=== PATIENT | male | born 1970 | race Caucasian/White ===

== ENCOUNTER 2017-12-17 14:14 | Emergency (ER) | payer BC, SELFPAY ==
[2017-12-17 14:15] VITALS: BP 108/76; PULSE 69; RESP 16; TEMP 36.6; O2SAT 93; BMI 29.6
[2017-12-17 14:23] VITALS: BP 108/76; PULSE 65; RESP 14; O2SAT 94; O2SAT 96
--- NOTE | 2017-12-17 14:26 | CT_ITS ---
STUDY: CT BRAIN WITHOUT CONTRAST REASON FOR EXAM: Male, 47 years old. Facial pain following trauma. Laceration of the forehead and bridge of the nose. RADIATION DOSAGE (If Supplied By Facility): CTDIvol = ( 44.99 ) mGy, DLP = ( 863.60 ) mGycm TECHNIQUE: Transaxial CT imaging of the brain was performed without administration of intravenous contrast material. Individualized dose optimization techniques were used for this CT. COMPARISON: None. FINDINGS: Skull hematoma overlying the right frontal bone. Normal calvarium. Normal size ventricles and extra-axial spaces for the patient's age. Normal white matter tracts of the cerebral hemispheres. Normal basal ganglia and thalami. Normal brainstem. Normal cerebellum. There is no intracranial hemorrhage. There are no findings of an acute ischemic infarction. Comminuted nondisplaced nasal fracture. Nasal septal deviation toward the left side of the midline. Air-fluid level in the right frontal sinus. CT/Brain/Head without Contrast IMPRESSION: Skull hematoma overlying the right frontal bone. Comminuted nondisplaced nasal fracture. Electronically Signed: Eric Sherman MD at 15:22 EST Tel [phone], Service support ,
--- NOTE | 2017-12-17 14:26 | CT_ITS ---
STUDY: CT FACIAL BONES WITHOUT CONTRAST REASON FOR EXAM: Male, 47 years old. Facial trauma. Laceration to the bridge of the nose and forehead. RADIATION DOSAGE (If Supplied By Facility): CTDIvol = ( 29.38 ) mGy, DLP = ( 628.26 ) mGycm TECHNIQUE: The patient was scanned in a multi detector CT scanner. Sagittal and coronal images were reconstructed. Individualized dose optimization techniques were used for this CT. COMPARISON: None. FINDINGS: Scalp hematoma overlying the right frontal bone. Normal orbital howard and orbital contents. Condyle nondisplaced nasal fracture with overlying soft tissue swelling. Normal facial bones. Air fluid level in the right frontal sinus. Nasal septal deviation to the right-sided midline. Mucosal thickening of the ethmoid sinuses. CT/Sinus/Facial Bone IMPRESSION: Comminuted nondisplaced nasal fracture. Electronically Signed: Eric Sherman MD at 15:24 EST Tel [phone], Service support ,
--- NOTE | 2017-12-17 14:59 | CT_ITS ---
STUDY: CT CERVICAL SPINE WITHOUT CONTRAST REASON FOR EXAM: Male, 47 years old. Facial trauma. RADIATION DOSAGE (If Supplied By Facility): CTDIvol = ( 27.47 ) mGy, DLP = ( 581.39 ) mGycm TECHNIQUE: High resolution transaxial imaging was performed without contrast material. Sagittal and coronal images were reconstructed. Individualized dose optimization techniques were used for this CT. COMPARISON: None FINDINGS: Normal craniovertebral junction. Normal anterior atlantoaxial articulation. Normal odontoid process. Normal cervical lordosis. Normal vertebral bodies and posterior osseous elements. C2-3: Normal endplates. Normal disc height and morphology. Normal central canal and intervertebral neuroforamina. C3-4: Normal endplates. Normal disc height and morphology. Normal central canal and intervertebral neuroforamina. C4-5: Normal endplates. Normal disc height and morphology. Normal central canal and intervertebral neuroforamina. C5-6: The patient is status post anterior fusion with prosthetic disc at the C5-C6 level. Uncovertebral arthrosis. Mild bilateral neural foraminal stenosis. C6-7: Status post anterior fusion and prosthetic disc. Uncovertebral arthrosis. Mild to moderate degree of right neural foraminal stenosis. Normal visualized soft tissue structures. CT/Spine Cervical without Contras IMPRESSION: Status post anterior fusion at the C5-6 and C6-C7 levels. Electronically Signed: Eric Sherman MD at 15:35 EST Tel [phone], Service support ,
[2017-12-17] MEDS: Diphth,Pertuss(Acell),Tet Vac 0.5 ML Vial IM (15:10)
[2017-12-17 15:15] VITALS: BP 125/81; PULSE 82; RESP 16; O2SAT 95
[2017-12-17 16:09] VITALS: BP 124/82; PULSE 71; RESP 16; O2SAT 99
--- NOTE | 2017-12-17 16:21 | ED.DCSUM_ITS ---
- ER Visit Summary Date of Service: 12/17/17 Chief Complaint: Head trauma History of Present Illness: The patient is a 47 M presenting for evaluation secondary to head trauma. Patient was working outside when he was struck forcibly in the head by a heavy tree branch. Patient states that he thinks he potentially may have lost consciousness, states that everything looked like it was upside down when he got hit in the head. He is not on any sort of anticoagulants. Patient is now complaining of forehead and nasal pain. He denies any other injuries at this time. Physical Examination: Primary survey: Airway is patent, breath sounds equal bilateral, central peripheral pulses 2+ and symmetric, GCS 15 out of 15. Vitals within normal limits. Secondary survey: General: Well-nourished well-developed no acute distress Head: Normocephalic atraumatic Eyes: PERRLA, EOMI ENT: TMs clear no hemotympanum no drainage, nasal exam shows deformity of the nasal bone with some deviation to the left and laceration noted over the bridge of the nose measuring approximately a centimeter and a half. No nasal septal hematoma noted. Neck: Nontender full range of motion, no step-offs noted Heart: Regular rate and rhythm no murmurs Lungs: Respirations nondistressed, lung sounds clear to auscultation bilaterally , chest nontender, normal chest excursion bilaterally Abdomen: Soft nontender nondistended normal bowel sounds no palpable abdominal masses Back: Nontender no step-offs noted Extremities: Nontender: Active full range of motion ?4 Skin: Normal color no trauma Neuro: Alert and oriented ?4, GCS 15 out of 15, no lateralizing neurological deficits. Test Results: CT brain negative, CT cervical spine negative, CT max face shows evidence of a comminuted nondisplaced nasal fracture Emergency Department Course and Treatment: Patient presented after being struck in the head. Primary and secondary surveys are noted as above traumatic issues seem to be isolated to the patient's face and head. Imaging showed only evidence of comminuted nasal fracture. Patient's tetanus status was updated. I discussed patient's case with ENT Dr. Lucas, given the fact that the patient has an open nasal fracture. He recommended prophylactic antibiotics with penicillin, and early follow-up. Patient's nasal wound was then addressed. It was cleansed initially with tap water, then was anesthetized using 5 cc of 1% lidocaine. It was then copiously irrigated with sterile saline. The wound was then approximated using 3 simple interrupted 5-0 nylon sutures patient tolerated this well. Patient will be discharged with a course of penicillin and Percocet and follow-up with ENT. Disposition: Discharge Impression: 1. 1.5 cm nasal laceration 2. Open nasal fracture 3. Laceration repair by ED physician This note was generated with Extreme [employer] dictation software. It may contain incorrect words, spelling, and punctuation that were not noted in review of the chart prior to signing ED Disposition - Plan for ED Patient: Disposition: Home or Assisted Living Chief Complaint: Trauma Diagnosis: Open nasal fracture Instructions: ED Fx Nose W Lac Skin Glue Prescriptions: Oxycodone HCl/Acetaminophen [Percocet 5/325] 1 tab PO Q6H PRN PRN #20 tab PRN Reason: Pain Penicillin V Potassium 500 mg PO 4X/DAY #40 tab Referrals: Jose Guadalupe Lucas MD [STAFF PHYSICIAN] - As soon as possible
[2017-12-17 16:51] VITALS: BP 129/82; PULSE 81; RESP 16; O2SAT 97
[2017-12-17] MEDS: Penicillin Vk 250 MG Tablet 500 MG PO (16:55)
[2017-12-17] MEDS: oxyCODONE 5 MG Tablet 10 MG PO (16:56)
== END 2017-12-17 17:26 | disposition home or self-care (01) ==
PROVIDERS: Emergency Provider Emergency Medicine; Family Provider Family Medicine; PCP Family Medicine
DX: S01.21XA Laceration without foreign body of nose, initial encounter (principal); S02.2XXB Fracture of nasal bones, initial encounter for open fracture; W20.8XXA Other cause of strike by thrown, projected or falling object, initial encounter; Y93.9 Activity, unspecified; Y92.89 Other specified places as the place of occurrence of the external cause; Y99.9 Unspecified external cause status
CPT/HCPCS: 12011; 70450; 70486; 72125; 90471; 90715; 99283; J7030

== ENCOUNTER 2017-12-24 10:46 | Day surgery (SDC) | payer BC, SELFPAY ==
[2017-12-24 11:08] VITALS: BP 118/85; PULSE 71; RESP 16; TEMP 36.4; O2SAT 98; BMI 30.8
--- NOTE | 2017-12-24 12:36 | PCM.DC ---
You will use the following diet at home:: Regular Discharge Activity: Return to Normal Activity Call your doctor if your incision/area has: Sudden Increased Bleeding Call your doctor if you observe: Fever of 101 or Higher, Uncontrolled pain Allergies/Adverse Reactions: Allergies No Known Allergies Allergy (Verified 12/23/17 15:21) Medications to take at Discharge RX: Penicillin V Potassium 500 mg PO 4X/DAY #40 tab 12/17/17 Acetaminophen [Tylenol Extra Strength] 500 - 1,000 mg PO Q6H PRN PRN 12/23/17 Primary Care Physician: Aldair Wells MD [Primary Care Provider] - Please Follow Up With: Jose Guadalupe Luacs MD When: 2 weeks
--- NOTE | 2017-12-24 12:37 | PCM.OPRPT ---
Problem List (1) Nasal bone fracture Status: Acute Report of Operation Date of Procedure: 12/24/17 Pre-Operative Diagnosis: Reduction of nasal fracture Post-Operative Diagnosis: same Surgery/Procedure Performed:: Reduction of nasal fracture Description of Surgical Findings:: Layton is a 39-year-old male who suffered nasal trauma with open fracture who presents to the emergency department and I saw subsequently in follow-up. At time of initial evaluation there is significant soft tissue swelling and edema which obscure the amount of nasal dorsal deviation however as this subsided a significant curvature of the nasal dorsum and depression of the right nasal bone were noted and reduction for correction of the nasal congestion deformity was offered at his request. The risks, alternatives, potential comp occasions, and benefits were discussed at length with witnessed informed consent obtained in the office. Procedure went as follows: Patient was identified in the preoperative holding brought to the operating room was placed under general anesthesia and intubated. When appropriate anesthesia obtained oxymetazoline and 4% topical lidocaine soaked pledgets were placed in the nasal cavity to decongest the nasal mucosa. After lying for decongestion these were then removed and the nasal cavity examined there is noted to be a markedly inferior and old left rib nasal septal deviation and narrowing of the superior aspect of the nasal passageways due to the depressed fracture of the right nasal bone. Using a [place] elevator the depressed right nasal bone was then elevated and lifted reducing the fracture this also alleviated the leftward deviation of the dorsum as the left nasal bone dropped into its [place] position. This allowed for both muslim of the external contour of the nose and muslim of patency of the nasal cavities bilaterally. No additional reinforcement was required as this was quite stable and the nasal packing was then replaced for hemostasis and removed prior to extubation by anesthesia having tolerated procedure well. Type of Anesthesia:: General Anesthesiologist: Edy Marie Specimen's removed: none Estimated Blood Loss (mL): 0 mL Fluids Replaced: 0 mL Grafts/Implants Used: none - Complications none - Admit VTE Documentation VTE Present on Admission: No VTE Mechan Device Prophylaxis: SCD's VTE Pharm Prophylaxis ordered?: No
[2017-12-24 12:42] VITALS: BP 118/85; BP 120/89; PULSE 77; RESP 12; TEMP 36.3; O2SAT 94
--- NOTE | 2017-12-24 12:43 | OP.PCM_ITS ---
Problem List (1) Nasal bone fracture Status: Acute Report of Operation Date of Procedure: 12/24/17 Pre-Operative Diagnosis: Reduction of nasal fracture Post-Operative Diagnosis: same Surgery/Procedure Performed:: Reduction of nasal fracture Description of Surgical Findings:: Layton is a 39-year-old male who suffered nasal trauma with open fracture who presents to the emergency department and I saw subsequently in follow-up. At time of initial evaluation there is significant soft tissue swelling and edema which obscure the amount of nasal dorsal deviation however as this subsided a significant curvature of the nasal dorsum and depression of the right nasal bone were noted and reduction for correction of the nasal congestion deformity was offered at his request. The risks, alternatives, potential comp occasions, and benefits were discussed at length with witnessed informed consent obtained in the office. Procedure went as follows: Patient was identified in the preoperative holding brought to the operating room was placed under general anesthesia and intubated. When appropriate anesthesia obtained oxymetazoline and 4% topical lidocaine soaked pledgets were placed in the nasal cavity to decongest the nasal mucosa. After lying for decongestion these were then removed and the nasal cavity examined there is noted to be a markedly inferior and old left rib nasal septal deviation and narrowing of the superior aspect of the nasal passageways due to the depressed fracture of the right nasal bone. Using a [place] elevator the depressed right nasal bone was then elevated and lifted reducing the fracture this also alleviated the leftward deviation of the dorsum as the left nasal bone dropped into its [place] position. This allowed for both yazidi of the external contour of the nose and yazidi of patency of the nasal cavities bilaterally. No additional reinforcement was required as this was quite stable and the nasal packing was then replaced for hemostasis and removed prior to extubation by anesthesia having tolerated procedure well. Type of Anesthesia:: General Anesthesiologist: Edy Marie Specimen's removed: none Estimated Blood Loss (mL): 0 mL Fluids Replaced: 0 mL Grafts/Implants Used: none - Complications none - Admit VTE Documentation VTE Present on Admission: No VTE Mechan Device Prophylaxis: SCD's VTE Pharm Prophylaxis ordered?: No
[2017-12-24 12:45] VITALS: BP 116/91; BP 118/85; PULSE 74; RESP 16; O2SAT 95
[2017-12-24 13:00] VITALS: BP 118/85; BP 120/79; PULSE 69; RESP 16; O2SAT 96
[2017-12-24 13:10] VITALS: BP 118/85; BP 125/90; PULSE 64; RESP 18; TEMP 36.2; O2SAT 97
[2017-12-24 13:40] VITALS: BP 118/85; BP 120/90; PULSE 78; RESP 18; TEMP 36.8; O2SAT 98
== END 2017-12-24 13:40 | disposition home or self-care (01) ==
LOC: SDC 10:47 → AC 10:47
PROVIDERS: Family Provider Family Medicine; PCP Family Medicine; Visit Provider Otolaryngology
PROC: 0NSBXZZ Reposition Nasal Bone, External Approach (ICD-10-PCS; CPT 21315; principal; 2017-12-24 12:15)
DX: S02.2XXD Fracture of nasal bones, subsequent encounter for fracture with routine healing (principal); R68.84 Jaw pain; Z85.828 Personal history of other malignant neoplasm of skin
CPT/HCPCS: 21315; J7120; J2405

== ENCOUNTER 2019-09-25 16:30 | Outpatient (RCR) | payer BC, SELFPAY ==
--- NOTE | 2019-09-12 14:11 | HP.PTEVAL ---
Patient's Visit Information CHRISTI ABBASI is a 49 year old M referred to Physical Therapy by GABRIEL ALVAREZ with a diagnosis of CERVICOTHORACIC DDD.. Date of Evaluation: 09/12/19 Physical Therapist: Julia Sánchez PT, Cert MDT - Visit Plan Frequency: 2-3x /Week Duration: 4-6 Weeks Plan: CP OR MH NEEDED. CERVICAL ISOMETRICS TOLERATED. POSTURE CORRECTION/STRENGTHENING, INSTRUCTION IN APPROPRIATE BODY MECHANICS AND ACTIVITY MODIFICATIONS. VESNA UE ROM, STRETCHING AND STRENGTHENING. HEP INSTRUCTION. - Subjective Findings: Work/Leisure: WORKING [employer] IN AN [employer]. NOT OFF WORK CURRENTLY. Present symptoms: REALLY BAD HEADACHE AT THE BASE OF NECK - CENTRAL. Present since: ABOUT 6 WEEKS AGO. STARTED HEARING LOAD CRACKS IN NECK (VERY LOUD BUT WITHOUT PAIN) ABOUT 2 MONTHS AGO. Pain Scale: Worst - 7/10 Least - 3/10. Currently: 6/10. GETTING WORSE. Commenced as a result of: NO APPARENT REASON. Symptoms at onset: LOAD CRACKING IN NECK. Worse: UNKNOWN. Better: ICE, EXCEDERINE. Disturbed sleep: YES. Previous history/Previous treatment: SURGERY 08/13/15 - FUSION C567. HAD PHYSICAL THERAPY AFTER SURGERY, RECOVERED, BACK TO WORK AND FINE UNTIL RECENTLY. Dizziness: NO. Tinnitis: NO. Nausea: NO. Shortness of Breath: NO. Difficulty Swollowing: NO. Gait: NORMAL. Accidents: TREE FELL AND HIT HIM IN FACE AND BROKE HIS NOSE - SURGERY DEC 2017. Unexplained weight loss: NO. Imaging: X-RAY AND CAT SCAN RECENTLY OF NECK - LOOSENING OF THE HARDWARE IN THE NECK. STATES THEY DIDN'T SEE ANYTHING TO BE ALARMED ABOUT SO WANT HIM TO TRY PHYSICAL THERPAY FOR A MONTH BEFORE TRYING ANYTHING ELSE. PMH/Recent major surgery: UNREMARKABLE. - Objective Sitting Posture/Standing Posture: FAIR. NO TORTICOLLIS. Active Correction of posture: NE. Other Observations: INDEP GAIT AND TRANSFERS. Motor deficit: VESNA UE'S 5/5 WITH MMT'ING. LEFT HANDED WITH LEFT DRY CELL TESTER 140 LBS AND RIGHT 130 LBS. Sensory deficit: NO. ROM deficit: VESNA UE ROM WFL AND TESTING HAS NO EFFECT ON NECK/HEAD PAIN. Reflexes: VESNA UE'S 1/2. Dural Signs: NEGATIVE VESNA UE'S. Cervical Mvmt Loss: Flex: MIN. Pro: NIL. Ext: MERY. Ret: MERY. RSB: MOD. LSB: MOD. R Rot: MOD. L Rot: MOD. PATIENT DENIES INCREASED PAIN WITH VESNA SB AND VESNA ROTATION ROM TESTING HOWEVER RETRACTION AND EXTENSION TESTING QUICKLY INCREASE PAIN. Postural strength: NE. Palpation: NO ACUTE TENDERNESS WITH LIGHT PALPATION OF UPPER THORACIC AND CERVICAL REGIONS. OTHER: PATIENT ALSO UNABLE TO TOLERATE SUB MAX SUPIINE ISO RETRACTION WITHOUT PAIN BUILDING BUT NO WORSE A RESULT. - Goals Goal 1:: DECREASE C/O HEAD/NECK PAIN Goal Time Frame: 2-4 Weeks Goal 2:: IMPROVE LIFTING, SLEEP, WORK, DRIVING AND RECREATIONAL FUNCTION Goal Time Frame: 2-4 Weeks Goal 3:: INSTRUCT IN PROPHYLAXIS Goal Time Frame: 2-4 Weeks - Rehabilitation Potential Rehabilitation Potential: Fair - Anticipated Interventions Patient/Client Instruction: Educate patient on: Condition, Plan of Care, Risk Factors, Benefits of Fitness Program For the Purpose of:: To improve self management Therapeutic Exercise to Include: Strength training, Body mechanics, Postural training, Flexibilty training, Active ROM, Scapular Strength/Stabilization Comment: INCLUDE TRIAL OF CERVICAL ISOMETRICS For the Purpose of:: To decrease pain, To increase ROM, To improve muscle performance and motor function, To increase tolerance to activity/condition/position, To improve ability of physical actions for home/community/work/leisure Cryotherapy (ice pack, ice massage): Yes Thermo therapy (hot pack): Yes For the Purpose of:: To decrease pain, To decrease swelling/inflammation, To increase ROM, To improve nutrient delivery to tissue Thank you for the opportunity to evaluate your patient. For Medicare and Medicare HMO plans, please review the plan of care and approve it. It will need to be FAXED BACK to us at [phone] for Medicare purposes. For Medicare only, by signing this I certify the plan of care. Please let me know if there are questions or concerns regarding this plan of care. Physician Signature: Date:
--- NOTE | 2019-09-25 17:16 | HP.PTDCSUM ---
HP - PT D/C Summary It has been my pleasure to treat CHRISTI ABBASI under orders from GABRIEL ALVAREZ, for the diagnosis of CERVICOTHORACIC DDD. for a total of 6 visit(s). Discharge Date: 09/25/19 Please see the following information for a summary of their discharge status. - Subjective Subjective: PATIENT REPORTS HIS PAIN WAS PRETTY GOOD OVER THE WEEKEND. HEADACHE/NECK ACHE WENT AWAY AFTER MORE EXCEDERIN WEDNESDAY. NONE OF THE EX'S BOTHER IT UNLESS GOES TO FAR WITH RETRACTION. STATES IT IS REALLY A NECK ACHE NOT A HEADACHE. PATIENT REPORTS HE DOES SEEM TO BE SOME BETTER OVER-ALL. PATIENT REPORTS HIS LEFT SHOULDER IS DEFINATELY GETTING LOOSER. PATIENT REPORTS HE HAS TO CANCEL HIS NEXT TWO PT SAM'TS AND FOLLOWS UP WITH HIS NECK SURGEON DR. GABRIEL ALVAREZ WEDNESDAY. - Pain NECK Pain Intensity (Out of 10): 2 HEAD Pain Intensity (Out of 10): 0 - Overall Improvement % Improvement: 20 - Objective Objective/Function: UPON EXAM TODAY THIS PATIENT DEMO'S A SMALL INCREASE IN NECK FLEX, EXT, RIGHT ROTATION AND RETRACTION NECK ROM. THERE WAS AN AUDIBLE INCONSISTANT SNAPPING SOUND WITH RIGHT CERVICAL ROM TESTING TODAY. OVER-ALL HE IS REPORTING BEING ABOUT THE SAME. HE IS INDEP WITH A HEP THAT I HAVE RECOMMENDED HE CONTINUE TOLERATED AT THIS POINT. PATIENT REPORTS TRYING TRACTION SCARES HIM TO AND HE CAN NOT RELAX TO HAVE IT DONE. HE REPORTS HE WANTS TO TRY TO CONTINUE WITH THE EX'S AT THIS POINT. - Goals Goal 1:: DECREASE C/O HEAD/NECK PAIN Goal Progress: Progressing Goal 2:: IMPROVE LIFTING, SLEEP, WORK, DRIVING AND RECREATIONAL FUNCTION Goal Progress: Progressing Goal 3:: INSTRUCT IN PROPHYLAXIS Goal Progress: Progressing - Plan Plan: D/C. PHYSICIAN RE-ASSESSMENT RECOMMENDED. - D/C Information If there are questions or concerns regarding this patient's physical therapy, please feel free to call me at [phone]. Thank you for the referral of this patient. Sincerely, Julia Sánchez, PT, Cert MDT
== END 2019-09-25 19:00 | disposition home or self-care (01) ==
LOC: PT 16:30
PROVIDERS: Family Provider Family Medicine; PCP Family Medicine
DX: M50.33 Other cervical disc degeneration, cervicothoracic region (principal)
CPT/HCPCS: 97110; 97162; 97530

== ENCOUNTER → 2019-10-18 15:30 | Outpatient (CLI) | payer BC, SELFPAY ==
--- NOTE | 2019-10-18 15:48 | MRI_ITS ---
STUDY: MRI CERVICAL SPINE WITHOUT CONTRAST REASON FOR EXAM: Male, 49 years old. stenosis, pain upper back , h/o prior sx 2015, no relief with PT TECHNIQUE: Standardized fat and water weighted pulse sequences were obtained in the sagittal and axial planes. COMPARISON: MRI 08/01/2015 FINDINGS: Normal foramen magnum and brainstem-cervical cord junction. Normal craniovertebral junction. Normal anterior atlantoaxial articulation. Normal odontoid process. Normal cervical lordosis. Anterior surgical fusions of C5-C7 with normal alignment. C2-3: Disc osteophyte complex without compressive sequelae. C3-4: Disc osteophyte complex and bilateral facet hypertrophy with mild left foraminal stenosis. C4-5: Normal endplates. Normal disc height, signal and morphology. Normal central canal and intervertebral neural foramina. C5-6: Disc osteophyte complex with moderate central canal stenosis. C6-7: Disc osteophyte complex with mild central canal and moderate bilateral foraminal stenoses. C7-T1: Normal endplates. Normal disc height, signal and morphology. Normal central canal and intervertebral neural foramina. Normal cervical cord. Normal visualized soft tissue structures. Stable 12 mm T2 hyperintense nodule in the right thyroid lobe. Consider ultrasound correlation. MRI/Spine Cervical (Routine) IMPRESSION: Multilevel degenerative disease and postoperative change as described. Moderate bilateral foraminal stenoses at the C6-7 level. Stable 12 mm T2 hyperintense nodule in the right thyroid lobe. Consider ultrasound correlation. Electronically Signed: Ismael Trevino MD at 2:41 EST Tel , Service support ,
== END ==
PROVIDERS: Family Provider Family Medicine; PCP Family Medicine
DX: M48.02 Spinal stenosis, cervical region (principal)
CPT/HCPCS: 72141

== ENCOUNTER → 2019-12-18 15:54 | Outpatient (CLI) | payer BC, SELFPAY ==
[2019-12-18 12:51] VITALS: BMI 30.8
--- NOTE | 2019-12-18 15:00 | FLU_PTH ---
PATIENT: CHRISTI ABBASI LOC: [facility] U#:[id number] AGE/SX: 55/M ROOM: RE12/18/[address]: Dr. Misael Thao MD : 1970 BED: DIS: SPEC #: [id number] RECD: 12/18/19 15:47 STATUS: ALEK IRVIN #: [id number] CATRACHITO: 12/18/19 15:[address]: Misael Thao DEPT: CYTOLOGY RECD BY: Luis Go ENTERED: 12/19/19 09:45 SP TYPE: Fluid OTHR DR: Dr. Aldair Wells MD Tissues: A - Thyroid gland, NOS B - Thyroid gland, NOS Procedures: Special Stain Group II Surgery Specimen Level IV Cytospin Fluid Cytology Other HEADER OPERATION: Right thyroid FNA PRE-OP DIAGNOSIS: Right thyroid nodule TISSUE SUBMITTED: A - Right thyroid nodule fluid for cytology, B - Right thyroid slides x 8 DIAGNOSIS CYTOLOGY A. Right thyroid nodule fluid for cytology, FNA (cytospin and cell block): Consistent with cyst contents. See comment. B. Right thyroid nodule, FNA (smears): Atypical follicular cells of undetermined significance. Adequate for evaluation. See comment. KRYSTAL:marie 12/20/19 COMMENT A. The specimen predominantly consists of macrophages. B. Numerous macrophages are also noted, consistent with focal cystic changes. Correlation with clinical, radiologic findings and appropriate follow up are necessary. CYTOLOGY STUDY Slides are reviewed. CYTOLOGY GROSS A - Received is 0.25 ml of red cloudy fluid labeled with the patient's name and and designated per the requisition as right thyroid. Submitted for cytology preparation including cell block. B - Received are eight smears labeled with the patient's name and designated per the requisition as right thyroid. Submitted for staining. / marie 12/19/19 TC:5 CPT: 84105, [id number], 03197 ADDENDUM ADDENDUM ADDENDUM ADDENDUM ADDENDUM ADDENDUM ADDENDUM ADDENDUM ADDENDUM ADDENDUM ADDENDUM ADDENDUM ADDENDUM ADDENDUM 01/01/2020 10:49 ADDENDUM 01/01/2020 10:49 ADDENDUM 01/01/2020 10:49 ADDENDUM 01/01/2020 10:49 ADDENDUM 01/01/2020 10:49 This addendum is added to incorporate an outside pathology consultation report. The case was examined at [facility] (#[id number]) and the following diagnosis was rendered. A. Thyroid, right nodule fluid, fine needle aspiration: Atypia of undetermined significance. Limited cellularity. B. Thyroid, right nodule, fine needle aspiration: Positive for malignant cells. Papillary thyroid carcinoma. Please see complete above mentioned consultation report in EMR
== END ==
LOC: LABSPEC 15:56
PROVIDERS: PCP Family Medicine; Referring Provider Surgery; Visit Provider Surgery
DX: E04.1 Nontoxic single thyroid nodule (principal)
CPT/HCPCS: 88108; 88161; 88305; 88313

== ENCOUNTER → 2019-12-25 15:06 | Outpatient (CLI) | payer BC, SELFPAY ==
[2019-12-25 14:39] VITALS: BMI 30.8
[2019-12-25 15:57] LABS: Free T3 2.9 pg/mL (2.18-3.98); T4 Free Direct 0.89 ng/dL (0.76-1.46); Thyroid Stim Hormone (TSH) 1.69 uIU/mL (0.358-3.74)
[2019-12-27 20:49] LABS: Anti-Thyroglobulin AB < 1.0 IU/mL (0.0-0.9); Thyroglobulin, Serum Qt. 6.6 ng/mL (1.4-29.2); Thyroid Peroxidase AB 8 IU/mL (0-34)
== END ==
PROVIDERS: PCP Family Medicine; Referring Provider Surgery; Visit Provider Surgery
DX: E04.1 Nontoxic single thyroid nodule (principal)
CPT/HCPCS: 36415; 84432; 84439; 84443; 84481; 86376; 86800

== ENCOUNTER 2020-11-19 05:22 | Day surgery (SDC) | payer BC, SELFPAY ==
[2019-12-25 14:39] VITALS: BMI 30.8
[2020-11-19] VITALS (7 sets, daily range): BP systolic 109–125; BP diastolic 60–87; PULSE 73–78; RESP 16; TEMP 35.8–36.9; O2SAT 93–100; BMI 30.7
[2020-11-19] MEDS: Lactated Ringers 1,000 ML 100 ML IV (05:59)
--- NOTE | 2020-11-19 06:14 | PCM.HP.STD ---
Problem List (1) Screening for intestinal cancer Status: Acute History of Present Illness Date of Admission: 11/19/20 The patient is a 50 year old M who presents for screening colonoscopy today. He has never had a previous colonoscopy. He denies any gastrointestinal symptoms. No abdominal pain. No bright red blood per rectum or melena. He has no family history of colon cancer. He is not had any previous abdominal surgery Past Medical History Medical History: Medical History (Last Reviewed 12/25/19 @ 14:37 by Preeti Segundo) Right thyroid nodule (Acute) E04.1 Nasal bone fracture (Acute) S02.2XXA Arthritis M19.90 History of back problems Thyroid nodule E04.1 Allergies No Known Allergies Allergy (Verified 11/19/20 05:42) Home Medications: Ambulatory Orders Medication Instructions Recorded Acetaminophen [Tylenol] 500 - 1,000 mg PO Q6H PRN PRN 12/23/17 Surgical History: Surgical History (Last Reviewed 12/25/19 @ 14:37 by Preeti Segundo) History of fusion of cervical spine Z98.1 historyclosed reduction nasal fracture Smoking Status: Never smoker Tobacco Use: Non-smoker Review of Systems Constitutional: Denies: Fever, Night Sweats Cardiovascular: Denies: Chest Pain Respiratory: Denies: Cough, Shortness of Breath Gastrointestinal: Denies: Abdominal Pain, Hematochezia, Melena Endocrine: Denies: Change in Body Habitus VTE Information - Inpt Only VTE Present on Admission: No - Physical Exam Vitals/I&O's: Vital Signs Temp Pulse Resp BP Pulse Ox 97.7 F L 78 16 118/86 H 98 11/19/20 05:43 11/19/20 05:43 11/19/20 05:43 11/19/20 05:43 11/19/20 05:43 Oxygen Delivery Method Room Air Weight: 280 lb Body Mass Index (BMI) 30.7 General: Alert, Oriented x3, Cooperative, No apparent distress HEENT: Atraumatic Oral: Moist Mucosa Neck: Supple Lungs: Clear to auscultation Cardiovascular: Regular rate, Regular Rhythm Abdomen: Bowel Sounds Present, Soft, Non Tender Extremities: No Calf Tenderness Neurological: - - Normal cognition Psych/Mental Status: Normal Affect Current Medications Lactated Ringer's () 1,000 mls @ 100 mls/hr IV .Q10H SANDEE Last Admin: 11/19/20 05:59 Dose: 100 mls/hr Documented by: Assessment/Plan All Active Problems (Last Reviewed 12/25/19 @ 14:37 by Preeti Segundo) Screening for intestinal cancer (Acute) Right thyroid nodule (Acute) Nasal bone fracture (Acute) I recommended the patient a screening colonoscopy with possible biopsy or polypectomy is indicated. He is aware of the technique, benefit, risk, alternatives. He has had an opportunity to ask and have questions answered. He presents via open access. We will proceed as noted. Misael Thao M.D., F.A.C.S.
--- NOTE | 2020-11-19 06:49 | OP.CCLET_ITS ---
11/19/2020 Aldair Wells Re : Colonoscopy procedure for Layton Hewitt Dear Russell This procedure was performed on Thursday, November 19, 2020. My impressions and recommendations are as follows: Impressions : - Hemorrhoids found on perianal exam. - Diverticulosis in the sigmoid colon. - The examination was otherwise normal. - No specimens collected. Recommendations : - Discharge patient to home. - Resume previous diet. - Continue present medications. - Repeat colonoscopy in 10 years for screening purposes. My findings are described in the full procedure note, which is enclosed. If I can be of further assistance, please feel free to contact me at Doctor phone number(s): Work: . Sincerely, Misael Thao MD 11/19/2020 6:48:56 AM This report has been signed electronically.
--- NOTE | 2020-11-19 06:49 | OP.COLON_ITS ---
Patient Name: Layton Hewitt Procedure Date: 11/19/2020 6:07 AM Date of : 1970 Age: 50 Procedure: Colonoscopy Indications: Screening for colorectal malignant neoplasm Providers: Misael Thao MD Referring MD: Aldair Wells Medicines: Midazolam 5 mg IV, Meperidine 100 mg IV Patient Profile: Last Colonoscopy: none. The patient's first colonoscopy is today. Complications: No immediate complications. Procedure: Pre-Anesthesia Assessment: - Prior to the procedure, a History and Physical was performed, and patient medications and allergies were reviewed. The patient's tolerance of previous anesthesia was also reviewed. The risks and benefits of the procedure and the sedation options and risks were discussed with the patient. All questions were answered, and informed consent was obtained. Prior Anticoagulants: The patient has taken no previous anticoagulant or antiplatelet agents. ASA Grade Assessment: II - A patient with mild systemic disease. After reviewing the risks and benefits, the patient was deemed in satisfactory condition to undergo the procedure. After I obtained informed consent, the scope was passed under direct vision. Throughout the procedure, the patient's blood pressure, pulse, and oxygen saturations were monitored continuously. The adult colonoscope was introduced through the anus and advanced to the cecum, identified by appendiceal orifice and ileocecal valve. The colonoscopy was performed without difficulty. The patient tolerated the procedure well. The quality of the bowel preparation was good. The ileocecal valve and the appendiceal orifice were photographed. Moderate Sedation: Moderate (conscious) sedation was personally administered by the endoscopist. The following parameters were monitored: oxygen saturation, heart rate, blood pressure, and response to care. Total physician intraservice time was 15 minutes. Scope In: 6:29:40 AM Scope Withdrawal Time 0 hours 8 minutes 46 seconds Scope Out: 6:44:41 AM Total Procedure Duration Time 0 hours 15 minutes 1 second Findings: Hemorrhoids were found on perianal exam. A few diverticula were found in the sigmoid colon. The exam was otherwise without abnormality. Impression: - Hemorrhoids found on perianal exam. - Diverticulosis in the sigmoid colon. - The examination was otherwise normal. - No specimens collected. Recommendation: - Discharge patient to home. - Resume previous diet. - Continue present medications. - Repeat colonoscopy in 10 years for screening purposes. Procedure Code(s): --- Professional --- 74667, Colonoscopy, flexible; diagnostic, including collection of specimen(s) by brushing or washing, when performed (separate procedure) 75473, 59, Moderate sedation services provided by the same physician or other qualified health rn home care performing the diagnostic or therapeutic service that the sedation supports, requiring the presence of an independent trained observer to assist in the monitoring of the patient's level of consciousness and physiological status; initial 15 minutes of intraservice time, patient age 5 years or older Diagnosis Code(s): --- Professional --- Z12.11, Encounter for screening for malignant neoplasm of colon K64.9, Unspecified hemorrhoids K57.30, Diverticulosis of large intestine without perforation or abscess without bleeding CPT copyright 2017 [employer]. All rights reserved. The codes documented in this report are preliminary and upon goodwill representative review may be revised to meet current compliance requirements. Misael Thao MD 11/19/2020 6:48:56 AM This report has been signed electronically. Number of Addenda: 0 Note Initiated On: 11/19/2020 6:07 AM
== END 2020-11-19 07:36 | disposition home or self-care (01) ==
LOC: EN 05:23 → AC 05:25
PROVIDERS: PCP Family Medicine; Referring Provider Family Medicine; Visit Provider Surgery
PROC: 0DJD8ZZ Inspection of Lower Intestinal Tract, Via Natural or Artificial Opening Endoscopic (ICD-10-PCS; CPT 45378; principal; 2020-11-19 06:25)
DX: Z12.11 Encounter for screening for malignant neoplasm of colon (principal); K64.9 Unspecified hemorrhoids; K57.30 Diverticulosis of large intestine without perforation or abscess without bleeding; Z98.1 Arthrodesis status
CPT/HCPCS: 45378; 99152; 99153; J7120

== ENCOUNTER 2021-04-28 07:38 | Observation (INO) | payer BC, SELFPAY ==
[2020-11-19 05:43] VITALS: BMI 30.7
[2021-04-28] VITALS (10 sets, daily range): BP systolic 92–140; BP diastolic 61–89; PULSE 59–81; RESP 12–18; TEMP 36.3–36.9; O2SAT 95–98; BMI 30.6
--- NOTE | 2021-04-28 07:48 | NURSING ---
NO OLD EKGS
--- NOTE | 2021-04-28 07:55 | EKG12_ITS ---
Test Reason : CHEST PAIN Blood Pressure : / mmHG Vent. Rate : 070 BPM Atrial Rate : 070 BPM P-R Int : 186 ms QRS Dur : 108 ms QT Int : 400 ms P-R-T Axes : 045 018 031 degrees QTc Int : 432 ms Normal sinus rhythm Normal ECG Confirmed by TATI FRANK, LEESA ([id number]), movie editor SHIELA COTA ([id number]) on 05/02/2021 8:11:26 AM Referred By: SYLVIA Confirmed By:LEESA DUFFY MD
--- NOTE | 2021-04-28 08:08 | EX.ED.DYSGE1 ---
HPI History of Present Illness Chief Complaint: Chest Pain Informant: patient Narrative Narrative: Patient is a 51-year-old male with a past medical history of thyroid cancer who presents to the emergency department for chest pain. He states he had one episode on Wednesday that lasted approximately 5 minutes. He got up to a 7 out of 10. It was a pressure sensation. He did not think much of it as he has not had symptoms until this morning. He had right-sided chest pressure that was a 5 out of 10. He became sweaty with it. No significant shortness of breath. He did have some palpitations during the episode. No leg swelling or calf pain. He denies any radiation of the pain into his back but did have some radiation to his right shoulder. No abdominal pain. His father had 7 heart attacks with the first being in his 40s. Patient has not taken anything for this. He denies a smoking history. [facility] Medical History (Updated 04/28/21 @ 14:[address] William Garcia, ) Arthritis History of back problems Nasal bone fracture Right thyroid nodule Thyroid nodule Allergy/AdvReac Type Severity Reaction Status Date / Time No Known Allergies Allergy Verified 04/28/21 07:41 Family History Father Arthritis Cancer Heart disease Hypertension Mother Arthritis Surgical History History of fusion of cervical spine historyclosed reduction nasal fracture Social History (Updated 04/28/21 @ 11:49 by Mari Douglas) Smoking Status: Never smoker alcohol intake: current details: occasional substance use type: does not use ROS ROS ED Constitutional Constitutional ED: Denies chills or fever(s) Eyes Eyes: Denies change in vision ENT ENT ED: Denies epistaxis or rhinorrhea Cardiovascular Cardiovascular: Reports chest pain and palpitations Respiratory/Chest Respiratory/Chest: Denies cough, dyspnea or dyspnea on exertion Gastrointestinal Gastrointestinal: Denies abdominal pain, diarrhea, nausea or vomiting Musculoskeletal Musculoskeletal: Denies back pain or neck pain Integumentary Denies rash Neurologic Neurologic: Denies dizziness, headache(s) or weakness EXAM Physical Exam Const Vital Signs: 04/28/21 07:39 04/28/21 08:04 04/28/21 08:07 Temperature 97.6 F L Temperature Source Temporal Pulse Rate 81 80 Respiratory Rate 18 15 Blood Pressure 140/89 H 130/88 H Blood Pressure Mean 106 102 Pulse Ox 97 98 98 Oxygen Delivery Method Room Air Room Air Room Air 04/28/21 10:08 04/28/21 10:14 Temperature Temperature Source Pulse Rate 70 68 Respiratory Rate 14 Blood Pressure 124/82 H 124/82 H Blood Pressure Mean 96 Pulse Ox 98 Oxygen Delivery Method Positive well nourished and well developed General Appearance ED: well developed and NAD HEENT Reports normocephalic and head/scalp atraumatic Eyes PERRL and EOMs intact bilaterally Neck supple Chest Wall inspection of chest normal Resp normal respiratory effort and clear to auscultation bilaterally Auscultation: Negative for rales, rhonchi or wheezes Cardio regular rate, regular rhythm and no murmurs GI normal to inspection, nondistended, normoactive bowel sounds and non-tender Palpation: soft; Negative for guarding or rebound tenderness present Extremity normal to inspection General Extremety ED: Negative for edema or tenderness General Extremity: Negative for edema Neuro oriented x3, CN's II-XII intact bilaterally and no sensory deficits noted Sensorium / Orientation: alert Motor Exam: strength 5/5 throughout Psych mental status grossly normal Skin no rashes or lesions noted MDM MDM MDM Narrative Medical decision making narrative: Patient presents to the ED for chest pain. He is currently asymptomatic. Upon arrival to the emergency department vital signs within normal limits. He is in no acute distress. He has a benign physical exam. EKG, chest x-ray and basic lab work being obtained. We will give a dose of aspirin. Patient's work-up did not reveal any significant acute abnormality. His chest x-ray was clear. His initial troponin is negative. On reexamination patient states that he is starting to feel some left-sided chest pressure that he rates as a 2 out of 10. He will be started on nitroglycerin. Due to the heart score of 4 as well as active symptoms will bring into the hospital for further evaluation and management. Patient understands and is agreeable this plan. He otherwise has been stable throughout ED stay. Low concern for PE or aortic catastrophe. Lab Data Labs: Laboratory Results - last 24 hr 04/28/21 04/28/21 08:10 08:10 WBC 4.4 RBC 4.83 Hgb 14.4 Hct 42.5 MCV 88.0 MCH 29.8 MCHC 33.9 RDW Std Deviation 41.7 RDW Coeff of Conrad 13.0 Plt Count 164 MPV 9.6 Immature Gran % (Auto) 0.200 Neut % (Auto) 65.9 Lymph % (Auto) 21.9 [place] % (Auto) 8.4 Eos % (Auto) 2.9 Baso % (Auto) 0.7 Absolute Neuts (auto) 2.9 Absolute Lymphs (auto) 0.97 Nucleated RBC % 0 Sodium 143 Potassium 4.4 Chloride 107 Carbon Dioxide 28.0 Anion Gap 8 BUN 17 Creatinine 1.13 Estim Creat Clear Calc 103.83 Est GFR (MDRD) Af Amer 88 Est GFR (MDRD) Non-Af 72 BUN/Creatinine Ratio 15.0 Glucose 137 H Calcium 8.6 Troponin I < 0.015 Radiography Chest X-Ray - ED: 1 View (Single view portable x-ray interpreted by myself. Clear lung mireles bilaterally. No pleural effusion. Normal cardiac silhouette. Normal mediastinum. No acute cardiopulmonary abnormality.) Diagnostic Testing: Radiology Impression Chest X-Ray 04/28/21 08:20 IMPRESSION: No radiographic evidence of acute cardiopulmonary disease. at 0832 Reported and signed by: Lars Long MD Electronically Signed: Lars Long MD at 8:31 EDT Tel , Service support , EKG Initial EKG: Attestation: I personally reviewed and interpreted this EKG as follows: (Rate of 70 bpm normal sinus rhythm. Normal intervals. Normal axis. No significant ST elevations or depressions. No T wave abnormalities.) Discharge Plan Triage Chief Complaint: Chest Pain ED Provider: William Garcia Dx/Rx/DC Orders Clinical Impression: Chest pain Primary Care Provider: Aldair Wells Disposition Disposition: Acute Care Hospital [facility] Discharge Date/Time: 04/28/21 11:11
[2021-04-28] MEDS: Aspirin 325 MG Tablet PO (08:16)
[2021-04-28 08:19] LABS: Absolute Lymphocyte Count 0.97 X10^3/uL (0.83-4.51); Absolute Neutrophil Count 2.9 X10^3/uL (2.0-7.7); Basophil# 0.03 X10^3/uL; Basophil% 0.7 % (0-1); Eosinophil# 0.13 X10^3/uL; Eosinophils% 2.9 % (0-5); Hematocrit 42.5 % (40-54); Hemoglobin 14.4 g/dL (13.0-16.5); Lymphocyte # 0.97 X10^3/ul (0.83-4.51); Lymphocyte % 21.9 % (19-41); Mean Corp Hgb Conc 33.9 g/dL (32-36); Mean Corpuscular Hgb 29.8 pg (27.0-32.0); Mean Platelet Vol. 9.6 fl (6.2-12.0); Monocyte# 0.37 X10^3/uL; Monocyte% 8.4 % (0-10); NRBC Flagged by Analyzer 0 % (0-5); Neutrophil # 2.92 X10^3/uL (2.7-7.7); Neutrophil % 65.9 % (47-70); Platelet Count 164 K/mm3 (150-450); RBC Distribution Width SD 41.7 fl (35.1-43.9); Red Blood Count 4.83 M/mm3 (4.6-6.2); White Blood Count 4.4 K/mm3 (4.4-11.0)
--- NOTE | 2021-04-28 08:20 | RAD_ITS ---
History: chest pain EXAMINATION/TECHNIQUE: XR Chest 1 View: Portable COMPARISON: None FINDINGS: LINES/DEVICES: None. LUNGS: No consolidation, edema or effusion. No pneumothorax. MEDIASTINUM AND CARDIOVASCULAR STRUCTURES: Cardiac silhouette not enlarged. Central airways and mediastinal contour are unremarkable. BONES AND SOFT TISSUES: Unremarkable. RAD/Chest 1 View (Portable) IMPRESSION: No radiographic evidence of acute cardiopulmonary disease. at 0832 Reported and signed by: Lars Long MD Electronically Signed: Lars Long MD at 8:31 EDT Tel , Service support ,
[2021-04-28 08:35] LABS: Anion Gap 8 (5-15); BUN 17 mg/dL (7-18); Calcium,Total 8.6 mg/dL (8.5-10.1); Chloride 107 mmol/L (98-107); Creatinine, Serum 1.13 mg/dL (0.70-1.30); EST Glomerular Filtration Rate 72 mL/min (>60); Est Glom Filt Rate - Afr Amer 88 mL/min (>60); Estimated Creatinine Clearance 103.83 ml/min; Glucose 137 mg/dL (74-106); Potassium 4.4 mmol/L (3.5-5.1); Sodium Level 143 mmol/L (136-145)
[2021-04-28] MEDS: Nitroglycerin Oint 1 INCH PACKET TD (10:14)
--- NOTE | 2021-04-28 10:41 | NURSING ---
DR ARACELIS TY
--- NOTE | 2021-04-28 10:44 | HP.PCM.HOS_ITS ---
HPI - General General Date of Admission: 04/28/21 Date of Service: 04/28/21 Chief Complaint: Chest pain - 2 days HPI Narrative CHRISTI ABBASI, is a 51 M who presents with substernal chest pain that started 2 days ago. Patient was getting ready to go to a travel game when he had sudden onset of substernal chest pain that was squeezing, associated with some diaphoresis, not worse with deep breathing, or stretching. This lasted for a few minutes and went away. The next day, he had a left collarbone/pain that was associated with some angie phoresis. This also lasted for few minutes and was not related to exertion, happened at rest. This morning, he woke up with severe substernal to right- sided chest discomfort that was associated with diaphoresis and palpitations. His vitals have been stable. His EKG in the emergency room showed no acute ST changes. [facility] Medical History Arthritis History of back problems Nasal bone fracture Right thyroid nodule Thyroid nodule Allergy/AdvReac Type Severity Reaction Status Date / Time No Known Allergies Allergy Verified 04/28/21 07:41 Family History Father Arthritis Cancer Heart disease Hypertension Mother Arthritis Surgical History History of fusion of cervical spine historyclosed reduction nasal fracture S/P thyroid surgery Social History Smoking Status: Never smoker alcohol intake: current details: occasional substance use type: does not use ROS ROS Narrative Constitutional: Denies: Anorexia, Chills, Fever, Night Sweats, Weight Change Eyes: Denies: Blurred vision, Cataracts, Conjunctivae Inflammation, Pain, Redness, Vision Change HEENT: Denies: Difficulty Hearing, Difficulty Swallowing, Head Aches, Hearing Changes, Sinus Congestion, Sinus Drainage Cardiovascular: see HPI Respiratory: Denies: Cough, Shortness of breath at rest, Sputum production Gastrointestinal: Denies: Abdominal Pain, Nausea, Vomiting Genitourinary: Denies: Dysuria Musculoskeletal: Denies: Joint Pain, Joint stiffness, Joint swelling, Joint Tenderness Skin: Denies: Rash, Wounds Neurological: Denies: Numbness, Tingling, Focal weakness Vital Signs Vital Signs Vital Signs: 04/28/21 07:39 04/28/21 08:04 04/28/21 08:07 Temperature 97.6 F L Temperature Source Temporal Pulse Rate 81 80 Respiratory Rate 18 15 Blood Pressure 140/89 H 130/88 H Blood Pressure Mean 106 102 Pulse Ox 97 98 98 Oxygen Delivery Method Room Air Room Air Room Air 04/28/21 10:08 04/28/21 10:14 Temperature Temperature Source Pulse Rate 70 68 Respiratory Rate 14 Blood Pressure 124/82 H 124/82 H Blood Pressure Mean 96 Pulse Ox 98 Oxygen Delivery Method Weight Weight: 126.5 kg Body Mass Index (BMI) 30.6 Physical Exam Narrative General: Alert, Oriented x3, Cooperative, No apparent distress HEENT: Atraumatic, PERRLA, EOMI, Normocephalic Oral: Moist Mucosa Neck: Supple Lungs: Normal air movement, Diminished Cardiovascular: Regular rate, Regular Rhythm, Normal S1, Normal S2, No murmurs Abdomen: Bowel Sounds Present, Soft, Non Tender, Non-Distended, No Hepato- splenomegaly Extremities: No edema Skin: No rashes Neurological: Cranial nerves II-XII grossly intact, Neuro grossly intact Psych/Mental Status: Normal Affect, Appropriate Results Lab / Micro Data Result Diagrams: 04/28/21 08:10 04/28/21 08:10 Labs: Laboratory Results - last 24 hr 04/28/21 04/28/21 08:10 08:10 WBC 4.4 RBC 4.83 Hgb 14.4 Hct 42.5 MCV 88.0 MCH 29.8 MCHC 33.9 RDW Std Deviation 41.7 RDW Coeff of Conrad 13.0 Plt Count 164 MPV 9.6 Immature Gran % (Auto) 0.200 Neut % (Auto) 65.9 Lymph % (Auto) 21.9 [place] % (Auto) 8.4 Eos % (Auto) 2.9 Baso % (Auto) 0.7 Absolute Neuts (auto) 2.9 Absolute Lymphs (auto) 0.97 Nucleated RBC % 0 Sodium 143 Potassium 4.4 Chloride 107 Carbon Dioxide 28.0 Anion Gap 8 BUN 17 Creatinine 1.13 Estim Creat Clear Calc 103.83 Est GFR (MDRD) Af Amer 88 Est GFR (MDRD) Non-Af 72 BUN/Creatinine Ratio 15.0 Glucose 137 H Calcium 8.6 Troponin I < 0.015 Assessment & Plan Assessment/Plan (1) Chest pain: QUALIFIERS: Chest pain type: unspecified Qualified Code(s): R07.9 - Chest pain, unspecified (2) Thyroid cancer: PLAN: 1. Acute chest pain, atypical Initial EKG shows no acute ST changes, troponins x2 have been negative Admit to PCU, continue to monitor on telemetry, trend troponins Aspirin 81 mg p.o. daily,nitro as needed, stress test in a.m. Lipid profile, HgbA1c in a.m. 2. Thyroid cancer, status post excision, in remission Charges/Coding Visit Charges OBSV E&M: 35336 Initial observation care L3
--- NOTE | 2021-04-28 10:48 | NURSING ---
108 CP OBS ARACELIS
[2021-04-28 16:38] LABS: Thyroid Stim Hormone (TSH) 2.03 uIU/mL (0.358-3.74)
[2021-04-28 16:39] LABS: Hemoglobin A1c 5.4 % (3.8-5.6)
[2021-04-28] MEDS: Acetaminophen 325 MG Tablet 650 MG PO (16:55)
[2021-04-29 02:30] VITALS: BP 106/67; PULSE 62; RESP 16; TEMP 36.8; O2SAT 99
[2021-04-29 03:00] VITALS: PULSE 59
--- NOTE | 2021-04-29 05:00 | EKG12_ITS ---
Test Reason : AM EKG Blood Pressure : / mmHG Vent. Rate : 060 BPM Atrial Rate : 060 BPM P-R Int : 196 ms QRS Dur : 110 ms QT Int : 414 ms P-R-T Axes : 048 027 020 degrees QTc Int : 414 ms Normal sinus rhythm Normal ECG Confirmed by YASMEEN FRANK, KAREN ([id number]), features editor OWEN MATTSON ([id number]) on 04/30/2021 9:11:58 AM Referred By: DR HSU Confirmed By:KAREN ARANA MD
[2021-04-29 06:16] VITALS: BP 120/75; PULSE 66; RESP 18; TEMP 36.2; O2SAT 96
[2021-04-29] MEDS: Aspirin 81 MG TAB.CHEW PO (06:16)
[2021-04-29 06:37] VITALS: PULSE 65
[2021-04-29 06:44] LABS: Cholesterol 144 mg/dL (200); High Density Lipoprotein 28 mg/dL; Triglycerides 262 mg/dL; Very Low Density Lipoprotein 52 mg/dL (5-40)
[2021-04-29 10:10] VITALS: BP 136/80; PULSE 83; RESP 18; TEMP 36.7; O2SAT 97
--- NOTE | 2021-04-29 11:34 | PCM.DC ---
Discharge Instructions Diet Discharge Diet: No restrictions Activity Discharge Activity: Return to Normal Activity Dressing / Incision Call your doctor if you observe: Shortness of breath, Dizziness and Chest pain Follow Up Care Test Results: Test results from this visit will be discussed in further detail at your follow-up appointment, if applicable. Discharge Plan Admission Admit Date/Time: 04/28/21 10:43 Primary Reason for Your Visit: Chest pain Attending Provider: Minna Fritz Primary Care Provider: Aldair Wells Discharge Orders/Prescriptions Prescriptions: New atorvastatin 20 mg tablet 20 mg PO QHS Qty: 30 RF: 0 Referrals / Follow Up: Aldair Wells MD [Primary Care Provider] - In 1 Week Disposition Disposition (needs filled in before D/C Order can be placed): Home, self care
--- NOTE | 2021-04-29 12:46 | STRESSREP ---
Stress Test Report Date: 04-29-2021 Procedure: Exercise tolerance test/imaging study Indications: Chest pain Consent: Per the patient Procedure: The patient exercised on a Shoaib protocol for 9 minutes and 27 completing Stage III and 20 seconds of Stage IV achieving a peak heart rate of 157 bpm (93% predicted maximal heart rate) with a peak blood pressure 172/74 mmHg and a peak MET capacity of 10 METs. The baseline ECG demonstrated normal sinus rhythm. The peak exercise ECG demonstrated no obvious ECG changes. There was a rare PVC during exercise. The functional capacity was considered good. There was no complaint of chest discomfort during exercise or recovery. The examination was discontinued secondary to dyspnea. Impression: 1. Technically adequate (percent predicted maximal heart rate greater than 85%) exercise tolerance test 2. Peak exercise ECG with no obvious ECG changes 3. There was a rare PVC during exercise 4. Nuclear images pending Myocardial perfusion imaging study: Technique: The patient was injected with 14.8 mCi of technetium 99m Cardiolite and subsequently rest SPECT Cardiolite nuclear imaging was obtained in the horizontal long, vertical long, and short axis views. The patient exercised on a Shoaib protocol for 9 minutes and 27 completing Stage III and 20 seconds of Stage IV achieving a peak heart rate of 157 bpm (93% predicted maximal heart rate) with a peak blood pressure 172/74 mmHg and a peak MET capacity of 10 METs. The patient was injected with 44.5 mCi of technetium 99m Cardiolite and subsequently stress SPECT Cardiolite nuclear imaging was obtained in the horizontal long, vertical long, and short axis views. A gated Cardiolite study at peak stress was obtained. Interpretation: Rest and stress SPECT Cardiolite nuclear imaging status post realignment, normalization, and attenuation correction, demonstrates the appearance of relative uniform tracer uptake and myocardial perfusion appearing within normal limits. There is end systolic thickening and brightening. The gated Cardiolite study demonstrates myocardial thickening and inward wall motion. The reported LVEF is 68%. Impression: 1. Rest and stress SPECT Cardiolite nuclear imaging demonstrate relative uniform tracer uptake and myocardial perfusion appearing within normal limits. 2. The gated Cardiolite study reports an LVEF of 68%. This note was generated with [employer] software. It may contain incorrect words, spelling, and punctuation that were not noted in checking the note before signing.
--- NOTE | 2021-04-29 12:58 | PCM.DC.SUM ---
Documented by User: Verónica Castellanos NP, ALVARO-C 04/29/21 13:01 Providers Date of Admission: 04/28/21 Date of Discharge: 04/29/21 Primary Care Physician: Dr. Aldair Wells MD Reason For Visit: CHEST PAIN Diagnosis Discharge Diagnosis (1) Chest pain: Status: Acute Code(s): R07.9 - Chest pain, unspecified Qualifiers: Chest pain type: unspecified Qualified Code(s): R07.9 - Chest pain, unspecified (2) Thyroid cancer: Status: Inactive Code(s): C73 - Malignant neoplasm of thyroid gland Medications at Discharge Home Medications atorvastatin 20 mg PO QHS #30 tab 04/29/21 Hospital Course Operations None Procedures Stress test Summary of Care Provided Minutes Spent on Discharge: 35 Hospital Course: Patient is a 51-year-old male admitted 04/28/2021 due to chest pain. He has a past medical history of thyroid cancer status post excision, in remission. Also reports a significant familial history of CAD. Troponin negative. EKG without ST-T changes. Patient underwent nuclear stress test which was negative for ischemia, EF 68%. Patient's lab work unremarkable with the exception of elevated lipid profile. Initiated on atorvastatin 20 mg nightly. Recommend repeat lipid panel by PCP. TSH normal. Did discuss with patient he can consider taking [id number] baby aspirin given his family history however cardiac work-up during admission found to be unremarkable. Follow-up with PCP in 1 week. Patient seen and examined prior to discharge. Physical assessment as noted below. Patient is stable for discharge with follow up recommendations as noted above. This patient was seen by ROLO Romero under the supervision of Dr. Fritz. Physical Exam Const alert, oriented x3 and no apparent distress Orientation / Consciousness: awake, oriented to person, oriented to place and oriented to time HEENT normocephalic and moist oral mucous membranes Eyes PERRL, EOMs intact bilaterally and conjunctivae normal Neck no lymphadenopathy Resp normal respiratory effort and clear to auscultation bilaterally Cardio regular rate, regular rhythm and no murmurs Peripheral Pulses: pulses 2+ throughout GI normal to inspection, nondistended, normoactive bowel sounds, non-tender and non-distended Extremity normal to inspection Skin no rashes or lesions noted Lesions: no lesions Rashes: no rashes Trauma: no lacerations or abrasions Neuro CN's II-XII intact bilaterally, no focal motor deficits, no sensory deficits noted and deep tendon reflexes 2+ bilaterally Psych mental status grossly normal and affect normal Weight / BMI Weight Weight: 278 lb 7.101 oz Body Mass Index (BMI) 30.6 ABG / Lab / Microbiology Data Result Diagrams: 04/28/21 08:10 04/28/21 08:10 Laboratory: Laboratory Results - last 24 hr 04/28/21 04/28/21 04/28/21 13:07 15:38 15:38 Hemoglobin A1c Troponin I < 0.015 < 0.015 Triglycerides Cholesterol LDL Cholesterol VLDL Cholesterol HDL Cholesterol TSH 2.03 04/28/21 04/29/21 15:38 05:50 Hemoglobin A1c 5.4 Troponin I Triglycerides 262 H Cholesterol 144 LDL Cholesterol 64 VLDL Cholesterol 52 H HDL Cholesterol 28 L TSH Radiography Diagnostic Testing: Radiology Impression Chest X-Ray 04/28/21 08:20 IMPRESSION: No radiographic evidence of acute cardiopulmonary disease. at 0832 Reported and signed by: Lars Long MD Electronically Signed: Lars Long MD at 8:31 EDT Tel , Service support , D/C Instructions Discharge Diet: No restrictions Call your doctor if you observe: Shortness of breath, Dizziness and Chest pain Meaningful Use Info Meaningful Use Diagnoses (Choose all that apply): None applicable Discharge Plan Admission Admit Date/Time: 04/28/21 10:43 Primary Reason for Your Visit: Chest pain Attending Provider: Minna Fritz Primary Care Provider: Aldair Wells Discharge Orders/Prescriptions Prescriptions: New atorvastatin 20 mg tablet 20 mg PO QHS Qty: 30 RF: 0 Referrals / Follow Up: Aldair Wells MD [Primary Care Provider] - In 1 Week Disposition Disposition (needs filled in before D/C Order can be placed): Home, self care Documented by User: Dr. Minna Fritz MD 04/30/21 07:14 Providers Date of Admission: 04/28/21 Date of Discharge: 04/29/21 Reason For Visit: CHEST PAIN Medications at Discharge Home Medications atorvastatin 20 mg PO QHS #30 tab 04/29/21 ABG / Lab / Microbiology Data Result Diagrams: 04/28/21 08:10 04/28/21 08:10 Discharge Plan Admission Admit Date/Time: 04/28/21 10:43 Primary Reason for Your Visit: Chest pain Attending Provider: Minna Fritz Primary Care Provider: Aldair Wells Discharge Orders/Prescriptions Prescriptions: New atorvastatin 20 mg tablet 20 mg PO QHS Qty: 30 RF: 0 Referrals / Follow Up: Aldair Wells MD [Primary Care Provider] - In 1 Week Disposition Disposition (needs filled in before D/C Order can be placed): Home, self care Charges/Coding Addendum Addendum: This patient was seen in conjunction with Verónica Castellanos. I have independently interviewed and examined the patient and reviewed pertinent historical, laboratory, and other data. I have reviewed her note and concur with her documentation 51-year-old male with past medical history of thyroid CA status post excision, in remission who comes in with complaints of chest pain that has been ongoing 2 days prior to admission. Patient's admitting EKG was unremarkable for ST-T changes. He was admitted to the telemetry floor, and monitored with no acute events. His troponins were negative. He underwent nuclear stress test that was unremarkable. LVEF 68%. Patient was seen and examined. Denied any new complaints. Physical Exam: Gen: Comfortable, not pale, not jaundiced CVS:HS I +II, regular, no murmurs RESP: Diminished at lung bases GI: BS present and normal, soft, nontender, no palpable organs EXT:No edema Visit Charges OBSV E&M: 31941 Observation care discharge
--- NOTE | 2021-04-29 13:11 | CHAPLAIN ---
Type of Pastoral Visit _x__ Initial Visit ___ Follow-up Visit ___ On-call Visit ___ General Patient Visit ___ Spiritual Assessment ___ Family Conference ___ Bereavement ___ Rapid Response ___ Code Blue ___ Other (describe below) Pastoral Care Referral From _x__ Patient ___ Family ___ Nurse ___ Physician ___ Er Nurse ___ Android Platform Developer ___ Other (describe below) Sacrament/Intervention _x__ Active listening ___ Anointing ___ Pentecostalism ___ Bereavement ___ Communion ___ Radha exploration ___ ___ Life review _x__ Prayer ___ Reconciliation ___ Sacrament of Sick ___ Supportive presence ___ Wedding ___ Other (describe below) Pastoral Comments
== END 2021-04-29 11:34 | disposition home or self-care (01) ==
LOC: ED 08:45 → PCU 11:06
PROVIDERS: Admitting Provider Internal Medicine; Emergency Provider Emergency Medicine; PCP Family Medicine; Visit Provider Internal Medicine
DX: R07.89 Other chest pain (principal); C73 Malignant neoplasm of thyroid gland; R00.2 Palpitations; Z82.49 Family history of ischemic heart disease and other diseases of the circulatory system; M19.90 Unspecified osteoarthritis, unspecified site
CPT/HCPCS: 36415; 71045; 78452; 80048; 80061; 83036; 84443; 84484; 85025; 93005; 93017; 99218; 99283; A9500; A4216; G0378

== ENCOUNTER → 2023-10-18 | Outpatient (CLI) | payer BC, SELFPAY ==
[2023-10-18 15:15] LABS: Absolute Lymphocyte Count 1.33 X10^3/uL (0.83-4.51); Absolute Neutrophil Count 3.3 X10^3/uL (2.0-7.7); Basophil# 0.05 X10^3/uL; Basophil% 0.9 % (0-1); Eosinophil# 0.11 X10^3/uL; Eosinophils% 2.1 % (0-5); Hematocrit 44.5 % (40-54); Hemoglobin 14.5 g/dL (13.0-16.5); Lymphocyte # 1.33 X10^3/ul (0.83-4.51); Lymphocyte % 25.2 % (19-41); Mean Corp Hgb Conc 32.6 g/dL (32-36); Mean Corpuscular Hgb 28.8 pg (27.0-32.0); Mean Corpuscular Volume 88.5 fL (80-94); Mean Platelet Vol. 10.5 fl (6.2-12.0); Monocyte# 0.44 X10^3/uL; Monocyte% 8.3 % (0-10); NRBC Flagged by Analyzer 0 % (0-5); Neutrophil # 3.33 X10^3/uL (2.7-7.7); Neutrophil % 63.1 % (47-70); Platelet Count 202 K/mm3 (150-450); RBC Distribution Width CV 13.2 % (11.6-14.6); RBC Distribution Width SD 42.9 fl (35.1-43.9); Red Blood Count 5.03 M/mm3 (4.6-6.2); White Blood Count 5.3 K/mm3 (4.4-11.0)
[2023-10-18 15:34] LABS: Hemoglobin A1c 5.4 % (3.8-5.6)
[2023-10-18 15:36] LABS: ALB/GLOB Ratio 1.1 RATIO (0.9-2.4); AST(SGOT) 21 U/L (15-37); Alanine Aminotransfer ALT/SGPT 33 U/L (16-61); Alkaline Phosphatase 81 U/L (45-117); Anion Gap 6 (5-15); BUN 16 mg/dL (7-18); BUN/Creat Ratio 14.8 RATIO (10-20); Calcium,Total 8.7 mg/dL (8.5-10.1); Chloride 107 mmol/L (98-107); Cholesterol 141 mg/dL (200); Creatinine, Serum 1.08 mg/dL (0.70-1.30); EST Glomerular Filtration Rate 76 mL/min (>60); Est Glom Filt Rate - Afr Amer 91 mL/min (>60); Globulin 3.5 g/dL (2.2-4.2); Glucose 82 mg/dL (74-106); High Density Lipoprotein 33 mg/dL; Potassium 4.3 mmol/L (3.5-5.1); Protein, Total 7.5 g/dL (6.4-8.2); Sodium Level 141 mmol/L (136-145); Triglycerides 251 mg/dL; Very Low Density Lipoprotein 50 mg/dL (5-40)
[2023-10-18 15:37] LABS: Vitamin B12 322 pg/mL (211-911)
== END | disposition home or self-care (01) ==
LOC: BFHLAB 13:04
PROVIDERS: PCP Nurse Practitioner Family; Visit Provider Nurse Practitioner Family
DX: Z00.01 Encounter for general adult medical examination with abnormal findings (principal); G57.90 Unspecified mononeuropathy of unspecified lower limb
CPT/HCPCS: 36415; 80053; 80061; 82607; 83036; 85025

== ENCOUNTER → 2023-12-20 | Outpatient (CLI) | payer BC, SELFPAY ==
[2023-12-20 12:03] LABS: Absolute Lymphocyte Count 1.24 X10^3/uL (0.83-4.51); Absolute Neutrophil Count 3.1 X10^3/uL (2.0-7.7); Basophil# 0.03 X10^3/uL; Basophil% 0.6 % (0-1); Eosinophil# 0.12 X10^3/uL; Eosinophils% 2.4 % (0-5); Hematocrit 43.9 % (40-54); Hemoglobin 14.7 g/dL (13.0-16.5); Lymphocyte # 1.24 X10^3/ul (0.83-4.51); Lymphocyte % 24.8 % (19-41); Mean Corp Hgb Conc 33.5 g/dL (32-36); Mean Corpuscular Hgb 29.3 pg (27.0-32.0); Mean Corpuscular Volume 87.6 fL (80-94); Mean Platelet Vol. 10.4 fl (6.2-12.0); Monocyte# 0.46 X10^3/uL; Monocyte% 9.2 % (0-10); NRBC Flagged by Analyzer 0 % (0-5); Neutrophil # 3.12 X10^3/uL (2.7-7.7); Neutrophil % 62.6 % (47-70); Platelet Count 193 K/mm3 (150-450); RBC Distribution Width SD 41.6 fl (35.1-43.9); Red Blood Count 5.01 M/mm3 (4.6-6.2)
[2023-12-20 14:02] LABS: ALB/GLOB Ratio 1.1 RATIO (0.9-2.4); AST(SGOT) 17 U/L (15-37); Alanine Aminotransfer ALT/SGPT 29 U/L (16-61); Albumin, Serum 3.8 g/dL (3.2-5.0); Alkaline Phosphatase 85 U/L (45-117); Anion Gap 2 (5-15); BUN 14 mg/dL (7-18); BUN/Creat Ratio 13.1 RATIO (10-20); Calcium,Total 8.8 mg/dL (8.5-10.1); Chloride 111 mmol/L (98-107); Creatinine, Serum 1.07 mg/dL (0.70-1.30); EST Glomerular Filtration Rate 76 mL/min (>60); Est Glom Filt Rate - Afr Amer 92 mL/min (>60); Globulin 3.4 g/dL (2.2-4.2); Glucose 101 mg/dL (74-106); Potassium 4.1 mmol/L (3.5-5.1); Protein, Total 7.2 g/dL (6.4-8.2); Sodium Level 140 mmol/L (136-145)
== END | disposition home or self-care (01) ==
LOC: BFHLAB 10:39
PROVIDERS: PCP Nurse Practitioner Family; Visit Provider Nurse Practitioner Family
DX: R42 Dizziness and giddiness (principal); J34.89 Other specified disorders of nose and nasal sinuses
CPT/HCPCS: 36415; 80053; 85025

== ENCOUNTER 2023-12-24 11:04 | Emergency (ER) | payer BC, SELFPAY ==
[2023-12-24 11:05] VITALS: BP 134/95; PULSE 70; RESP 16; TEMP 35.7; O2SAT 99; BMI 31.1
[2023-12-24 11:19] VITALS: BMI 31.6
--- NOTE | 2023-12-24 11:36 | CT_ITS ---
STUDY: CT BRAIN WITHOUT CONTRAST REASON FOR EXAM: Male, 53 years old. Double vision RADIATION DOSAGE (If Supplied By Facility): CTDIvol = ( 44.99 ) mGy, DLP = ( 846.73 ) mGycm TECHNIQUE: Transaxial CT imaging of the brain was performed without administration of intravenous contrast material. Individualized dose optimization techniques were used for this CT. COMPARISON: December 17, 2017 FINDINGS: Normal soft tissue structures. Normal calvarium. Normal size ventricles and extra-axial spaces for the patient''s age. Normal white matter tracts of the cerebral hemispheres. Normal basal ganglia and thalami. Normal brainstem. Normal cerebellum. There is no intracranial hemorrhage. There are no findings of an acute ischemic infarction. Normal visualized paranasal sinuses. CT/Brain/Head without Contrast IMPRESSION: Normal unenhanced CT scan of the brain. Electronically Signed: Juan Washington MD at 13:26 EST ,
--- NOTE | 2023-12-24 11:36 | CT_ITS ---
STUDY: CTA HEAD AND NECK WITH CONTRAST REASON FOR EXAM: Male, 53 years old. Double vision RADIATION DOSAGE (If Supplied By Facility): CTDIvol = ( 19.8 ) mGy, DLP = ( 781.5 ) mGycm TECHNIQUE: CT angiography was performed with a multi-detector CT scanner. Data acquisition was obtained from the skull base through the vertex following intravenous administration of 100mL Isovue-370. MIP images were reconstructed from the axial data set. Post-processing of the angiographic images was performed, with multiplanar reformation and 3D reconstruction. Individualized dose optimization techniques were used for this CT. COMPARISON: No relevant priors. FINDINGS: Normal bilateral petrous carotid arteries. Normal right cavernous carotid artery with a normal supraclinoid bifurcation. Normal left cavernous carotid artery with a normal supraclinoid bifurcation. Normal right A1 segments of the anterior cerebral artery. Normal left A1 segments of the anterior cerebral artery. Normal intact anterior communicating artery (ACOM). Normal bilateral A2 segments of the anterior cerebral arteries. Normal right M1 and M2 segments of the middle cerebral arteries, with a normal M1 bifurcation. Normal left M1 and M2 segments of the middle cerebral arteries, with a normal M1 bifurcation. There is non-visualization of the right posterior communicating artery (PCOM). There is non-visualization of the left posterior communicating artery (PCOM). Normal bilateral vertebral arteries. Normal basilar artery with a normal basilar bifurcation. The visualized bilateral superior cerebellar (SCA) arteries are normal. Normal bilateral P1, P2 and visualized P3 segments of the posterior cerebral arteries. There is no demonstrated aneurysm of the [place]. There is no demonstrated abnormality of the visualized brain. There is degenerative change of the cervical spine with anterior cervical fusion and hardware extending from C5 to C7. AORTIC ARCH: Normal visualized aortic arch. Normal origins of the brachiocephalic, left common carotid, and left subclavian arteries. RIGHT CAROTID ARTERIES: Normal right common carotid artery (CCA). Normal right common carotid bulb. Normal origin of the right internal carotid (ICA) artery without a hemodynamically significant stenosis. Normal visualized cervical portion of the right internal carotid artery. Normal origin of the right external carotid artery (ECA). LEFT CAROTID ARTERIES: Normal left common carotid artery (CCA). Normal left common carotid bulb. Normal origin of the left internal carotid (ICA) artery without a hemodynamically significant stenosis. Normal visualized cervical portion of the left internal carotid artery. Normal origin of the left external carotid artery (ECA). VERTEBRAL ARTERIES: Normal bilateral vertebral arteries. CT/CTA Head AND Neck W/ Contrast IMPRESSION: Normal CTA Head and neck with contrast. No aneurysm or large vessel occlusion. No internal carotid artery stenosis. Electronically Signed: Juan Washington MD at 13:38 EST ,
--- NOTE | 2023-12-24 11:38 | EX.ED.DYSGE1 ---
HPI History of Present Illness Chief Complaint: Neuro S/Sx Detail of Chief Complaint: Double vision Informant: patient and other (Nutrition Partner) Narrative Narrative: Patient presents from [facility] for stroke workup. He reports double vision from his left eye, primarily when he looks down or to the side for the past week. 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 Due to concern for possible stroke or aneurysm he was sent to the emergency room for further workup. He does report having a mild headache for the past week. PFSH PFS Medical History Arthritis History of back problems Nasal bone fracture Right thyroid nodule Thyroid nodule Home Medications atorvastatin 20 mg tablet 20 mg PO QHS #30 tabs 04/29/21 [Rx Last Taken Unknown] Allergy/AdvReac Type Severity Reaction Status Date / Time No Known Allergies Allergy Verified 04/28/21 07:41 Family History Father Arthritis Cancer Heart disease Hypertension Mother Arthritis Surgical History History of fusion of cervical spine historyclosed reduction nasal fracture S/P thyroid surgery Social History Smoking Status: Never smoker alcohol intake: current details: occasional substance use type: does not use ROS ROS ED Constitutional Constitutional ED: Denies chills or fever(s) Eyes Eyes: Reports change in vision and diplopia ENT ENT ED: Denies rhinorrhea or sore throat Cardiovascular Cardiovascular: Denies chest pain or palpitations Respiratory/Chest Respiratory/Chest: Denies cough or dyspnea Gastrointestinal Gastrointestinal: Denies abdominal pain, nausea or vomiting Genitourinary Genitourinary ED: Denies dysuria Musculoskeletal Musculoskeletal: Denies back pain or extremity pain Integumentary Denies Abrasions or rash Neurologic Neurologic: Reports headache(s); Denies weakness Psychiatric Psychiatric: Denies anxiety or depression Endocrine Endocrinology: Denies polydipsia or polyuria Allergic/Immunologic Allergic/Immunologic ED: Denies lip swelling or urticaria EXAM Physical Exam Const Vital Signs: 12/24/23 11:05 12/24/23 14:27 Temperature 96.2 F L Temperature Source Temporal Pulse Rate 70 20 L Respiratory Rate 16 16 Blood Pressure 134/95 H 138/92 H Blood Pressure Mean 108 107 Pulse Ox 99 98 Oxygen Delivery Method Room Air Room Air Positive well nourished and well developed General Appearance ED: well developed HEENT Reports moist mucous membranes Eyes Eyes Narrative: Pupils are currently dilated from recent ophthalmology exam. Chest Wall inspection of chest normal and palpation of chest normal Resp normal respiratory effort and clear to auscultation bilaterally Cardio regular rate and regular rhythm GI non-tender Palpation: soft Extremity normal to inspection Neuro oriented x3 and no sensory deficits noted Motor Exam: strength 5/5 throughout Skin no rashes or lesions noted MDM MDM MDM Narrative Medical decision making narrative: IV line established. Labwork obtained to evaluate for leukocytosis, anemia, and electrolyte derangement. EKG obtained to evaluate for cardiac arrhythmia/ischemia. CT head along with CTA head and neck will be obtained to evaluate for potential stroke or aneurysm. History & Record Review Discussion w/independent historian: Patient and Significant other Lab Data Attestation: I reviewed the patient's lab results. Labs: Laboratory Results - last 24 hr 12/24/23 11:45 WBC 5.3 RBC 5.04 Hgb 14.8 Hct 43.3 MCV 85.9 MCH 29.4 MCHC 34.2 RDW Std Deviation 40.1 RDW Coeff of Conrad 13.0 Plt Count 183 MPV 9.6 Immature Gran % (Auto) 0.400 Neut % (Auto) 67.8 Lymph % (Auto) 20.0 [place] % (Auto) 9.0 Eos % (Auto) 2.2 Baso % (Auto) 0.6 Absolute Neuts (auto) 3.6 Absolute Lymphs (auto) 1.07 Nucleated RBC % 0 ESR 6 PT 13.6 INR 1.0 APTT 29.9 Sodium 140 Potassium 4.2 Chloride 109 H Carbon Dioxide 29.0 Anion Gap 2 L BUN 16 Creatinine 1.02 Estim Creat Clear Calc 128.63 Est GFR (MDRD) Af Amer 98 Est GFR (MDRD) Non-Af 81 BUN/Creatinine Ratio 15.7 Glucose 101 Calcium 9.4 Troponin I High Sens 5 C-React Prot Ext Range < 2.90 Radiography Diagnostic Testing: Clinical Impression(s) from Imaging Studies Brain CT 12/24/23 11:36 IMPRESSION: Normal unenhanced CT scan of the brain. Electronically Signed: Juan Washintgon MD at 13:26 EST , Head/Neck CTA 12/24/23 11:36 IMPRESSION: Normal CTA Head and neck with contrast. No aneurysm or large vessel occlusion. No internal carotid artery stenosis. Electronically Signed: Juan Washington MD at 13:38 EST , Brain MRI 12/24/23 14:04 IMPRESSION: Normal unenhanced MRI of the brain. Electronically Signed: Juan Washington MD at 15:50 EST , EKG Initial EKG: Attestation: I personally reviewed and interpreted this EKG as follows: Interpretation: Sinus Rhythm (Sinus at 64 with no acute ischemia.) Treatment and Re-Evaluation :: CBC was normal white count 5.3 with a hemoglobin of 14.8. Differential unremarkable. Chemistry studies unremarkable. Coags are normal. Troponin is normal at 5. Sed rate and CRP are both normal. CT of the brain along with CTA of the head and neck reveal no evidence of acute abnormalities. MRI of the brain is obtained and reveals no acute findings. I spoke with Dr. Ceja and relayed our findings. He will see the patient next week and if symptoms not improving will refer to neurology. Patient and spouse at bedside updated and in agreement with the plan. Discharge Plan Triage Chief Complaint: Neuro S/Sx ED Provider: Jocelin Pizarro Dx/Rx/DC Orders Clinical Impression: 3rd cranial nerve palsy Instructions: ED Double Vision (Diplopia) Prescriptions: No Action atorvastatin 20 mg tablet 20 mg PO QHS Qty: 30 0RF Primary Care Provider: Jennifer Lunsford Referrals: Samm Ceja MD [Med Staff - Active Staff] - Keep Agustina appointment Jennifer Lunsford, FASTENER SEWING MACHINE OPERATOR-C [Primary Care Provider] - Disposition Disposition: Home, Self Care
[2023-12-24 11:56] LABS: Absolute Lymphocyte Count 1.07 X10^3/uL (0.83-4.51); Absolute Neutrophil Count 3.6 X10^3/uL (2.0-7.7); Basophil# 0.03 X10^3/uL; Basophil% 0.6 % (0-1); Eosinophil# 0.12 X10^3/uL; Eosinophils% 2.2 % (0-5); Hematocrit 43.3 % (40-54); Hemoglobin 14.8 g/dL (13.0-16.5); Lymphocyte # 1.07 X10^3/ul (0.83-4.51); Mean Corp Hgb Conc 34.2 g/dL (32-36); Mean Corpuscular Hgb 29.4 pg (27.0-32.0); Mean Corpuscular Volume 85.9 fL (80-94); Mean Platelet Vol. 9.6 fl (6.2-12.0); Monocyte# 0.48 X10^3/uL; NRBC Flagged by Analyzer 0 % (0-5); Neutrophil # 3.62 X10^3/uL (2.7-7.7); Neutrophil % 67.8 % (47-70); Platelet Count 183 K/mm3 (150-450); RBC Distribution Width SD 40.1 fl (35.1-43.9); Red Blood Count 5.04 M/mm3 (4.6-6.2); White Blood Count 5.3 K/mm3 (4.4-11.0)
[2023-12-24 11:58] LABS: Erythrocyte Sedimentation Rate 6 mm/hr (0-20)
[2023-12-24 12:05] LABS: Prothrombin Time (Protime)PT. 13.6 SECONDS (11.7-14.9)
[2023-12-24 12:07] LABS: Partial Thromboplast Time 29.9 Seconds (24.1-36.2)
[2023-12-24 12:16] LABS: Anion Gap 2 (5-15); BUN 16 mg/dL (7-18); BUN/Creat Ratio 15.7 RATIO (10-20); CRP < 2.90 mg/L (0.0-3.0); Calcium,Total 9.4 mg/dL (8.5-10.1); Chloride 109 mmol/L (98-107); Creatinine, Serum 1.02 mg/dL (0.70-1.30); EST Glomerular Filtration Rate 81 mL/min (>60); Est Glom Filt Rate - Afr Amer 98 mL/min (>60); Estimated Creatinine Clearance 128.63 ml/min; Glucose 101 mg/dL (74-106); Potassium 4.2 mmol/L (3.5-5.1); Sodium Level 140 mmol/L (136-145); Troponin-I HS 5 pg/mL (3.0-78.0)
--- NOTE | 2023-12-24 14:04 | MRI_ITS ---
STUDY: MRI BRAIN WITHOUT CONTRAST REASON FOR EXAM: Male, 53 years old. Diplopia X 1 WEEK TECHNIQUE: Standardized multiplanar fat and water weighted pulse sequences were obtained. COMPARISON: CT. FINDINGS: Normal size of the ventricles and extra-axial spaces for the patient''s age. Normal white matter tracts of the supratentorial brain. There is no evidence for recent intracranial ischemia or other cause of cytotoxic edema on diffusion weighted imaging (DWI). Normal T2* images of the brain without demonstrated susceptibility artifact. There is no demonstrated hemosiderin stain. Normal bilateral basal ganglia. Normal thalami. There is no extra-axial fluid accumulation. Normal flow voids within the major intracranial circulation suggesting patency by spin echo criteria. Normal sella turcica, pituitary gland, infundibular stalk, optic chiasm and hypothalamus. Normal tectal plate and pineal gland. Normal midbrain, radha and medulla. Normal cerebellum. Normal basal cisterns. Normal bilateral temporal bones. Normal bilateral internal auditory canals. No demonstrated orbital abnormality, within the constraints of a routine brain study. Normal visualized paranasal sinuses. Normal calvarium and skull base. Normal visualized soft tissue structures. Normal visualized upper cervical spine. MRI/Brain without Contrast IMPRESSION: Normal unenhanced MRI of the brain. Electronically Signed: Juan Washington MD at 15:50 EST ,
[2023-12-24 14:27] VITALS: BP 138/92; PULSE 20; RESP 16; O2SAT 98
--- OUTSIDE RECORDS SUMMARY | 2023-12-24 15:01 | XMS RPT_ITS | CCD ---
Author Name Unknown Address [address] [place] [address] Organization [facility] Care Team Providers Care Manager Scientific Name Role Phone Aldair Wells MD Primary Care Provider 1( [phone] BRYCE MERCADO Referring Unavailable ALDAIR WELLS Primary Care Unavailable BRYCE MERCADO Attending Unavailable ALDAIR WELLS Primary Care Unavailable Medications Completed/Discontinued Medications Medication Drug Class(es) Dates Sig (Normalized) Sig (Original) aspirin 81 mg delayed release oral tablet (3 sources) Platelet Aggregation Inhibitor, Nonsteroidal Anti-inflammatory Drug Start: 05-02-2021 take 1 tablet by mouth once daily aspirin, enteric coated (ASPIRIN, ENTERIC COATED) 81 mg EC tablet Take 81 mg by mouth once daily. 0 05/02/2021 Active Problems Active Problems Problem Classification Problem Date Documented Date Episodic/Chronic Cancer of thyroid (4 sources) Malignant tumor of thyroid gland; Translations: [Malignant neoplasm of thyroid gland] Onset: 03-13-2020 Chronic Complications of surgical procedures or medical care (6 sources) History of subtotal thyroidectomy; Translations: [Postprocedural hypothyroidism] Onset: 09-08-2020 09-08-2020 Chronic Spondylosis; intervertebral disc disorders; other back problems (3 sources) Degeneration of intervertebral disc; Translations: [Degeneration of intervertebral disc, site unspecified] Onset: 07-04-2009 07-04-2009 Chronic Past or Other Problems Problem Classification Problem Date Documented Da te Episodic/Chronic Cancer of thyroid (6 sources) History of malignant neoplasm of thyroid; Translations: [Personal history of malignant neoplasm of thyroid] Onset: 06-12-2021 06-12-2021 Episodic Results Test Name Value Interpretation Reference Range Facil ity Vital Signs Date Time Vital Sign Value Performing Clinician Ana robison 02-24-2023 15:17-0400 Body height 203.2 cm Bryce Mercado MD Work Phone: [facility] 02-24-2023 15:17-0400 Body weight 128.37 kg Bryce Mercado MD Work Phone: [facility] 02-24-2023 15:17-0400 Diastolic blood pressure 77 mm[Hg] Bryce Mercado MD Work Phone: [facility] 02-24-2023 15:17-0400 Heart rate 79 /min Bryce Mercado MD Work Phone: [facility] 02-24-2023 15:17-0400 Systolic blood pressure 125 mm[Hg] Bryce Mercado MD Work Phone: [facility] 02-25-2022 11:29-0400 Body weight 128.82 kg Percy Villaseñor MD Work Phone: [facility] 02-25-2022 11:29-0400 Diastolic blood pressure 82 mm[Hg] Percy Villaseñor MD Work Phone: [facility] 02-25-2022 11:29-0400 Heart rate 76 /min Percy Villaseñor MD Work Phone: [facility] 02-25-2022 11:29-0400 Systolic blood pressure 128 mm[Hg] Percy Villaseñor MD Work Phone: [facility] Encounters Encounter Date Encounter Type Care Provider Facility Start: 02-24-2023 End: 02-25-2023 ambulatory BRYCE MERCADO Facility:[facility] Start: 02-24-2023 End: 02-24-2023 Patient encounter procedure Bryce Mercado MD Work Phone: Endocrinology Procedures Date Procedure Procedure Detail Performing Clinician Start: 09-04-2019 Adult depression screening assessment Percy Villaseñor MD Work Phone: Plan of Treatment Date Care Activity Detail Author Start: 07-23-2023 Influenza vaccination INFLUENZA (Season Ended) [facility] Start: 02-19-2023 DIABETES SCREEN DIABETES SCREEN [facility] Start: 11-22-2022 DEPRESSION ASSESSMENT DEPRESSION ASSESSMENT [facility] Start: 03-03-2022 End: 05-03-2022 T3 FREE BLD T3 FREE BLD Lab Routine History of thyroid cancer H/O partial thyroidectomy Expected: 03/03/2022, Expires: 05/03/2022 [facility] Work Phone: Immunizations Immunization Date Immunization Notes Care Provider Georges carias 10-16-2019 Influenza, injectabl e, Madin Chrissy Canine Kidney, quadrivalent with preservative Percy Villaseñor MD Work Phone: [facility] Payers Date Payer Category Payer Unknown [employer] PPO OOS [id number] 2013-Present [phone] [address] [place] [address] PPO [id number] 2013 Unknown [employer] PPO OOS [id number] 2013-Present [phone] [address] [place] [address] PPO [id number] 2013 Unknown [id number] Social History Date Type Detail Facility Start: 08-28-2020 End: 02-24-2023 Tobacco smoking status NHIS Never smoked tobacco [facility] Work Phone: Start: 08-28-2020 End: 02-24-2023 Tobacco use and exposure Smokeless tobacco non-user [facility] Work Phone: Start: 02-25-2022 End: 02-24-2023 Alcohol intake Current drinker of alcohol (finding) [facility] Start: 08-28-2020 History SDOH Alcohol Frequency 2 [facility] Start: 08-28-2020 History SDOH Alcohol Binge 3 [facility] Start: 1970 Sex Assigned At Not on file [facility] Start: 02-15-2022 End: 02-25-2022 Exposure to SARS-CoV-2 (event) Not sure [facility] Clinical Notes 01-18-2020 to 02-24-2023 Bryce Mercado MD - 02/24/2023 3:55 PM Arely Mercado MD - 02/24/2023 3:43 PM EDTPatient Bhavin Mercado MD - 03/03/2022 7:50 AM EDLucie Villaseñor MD - 03/02/2022 1:48 PM EDT Note Date & Type Note Facility 02-24-2023 Note HNO ID: [id number] Author: Bryce Mercado MD Service: ? Author Type: Physician Type: Procedures Filed: 02/24/2023 3:59 PM Note Text: ULTRASOUND EXAM OF THYROID RIGHT: Right thyroid lobe is removed surgically ISTHMUS: Normal. LEFT: Left thyroid lobe is of normal size and shape. Parenchyma is smooth. The is no nodule in this lobe. Impression: Normal findings after partial thyroidectomy. FNA: No FNA U/S by Staff:Bryce Mercado MD Date: February 24, 2023 [facility] 02-24-2023 Note HNO ID: [id number] Author: Bryce Mercado MD Service: ? Author Type: Physician Type: Progress Notes Filed: 02/24/2023 3:59 PM Note Text: Christi Abbasi is a 53 year old male who is presenting today February 24, 2023 for a Thyroid problem. Parts of this note are copied from last visit and modified as needed. Social History Tobacco Use Smoking status: Never Smokeless tobacco: Never Vaping Use Vaping Use: Never used Substance Use Topics Alcohol use: Yes Drug use: No Reason for visit: Hypothyroidism and Thyroid Ca Previous laboratory results: TSH Date Value 03/03/2022 2.820 mIU/L 06/12/2021 3.350 uU/mL 09/18/2020 4.100 uU/mL Free T4 (ng/dL) Date Value 03/03/2022 1.1 06/12/2021 1.2 09/18/2020 1.1 Free T3 (pg/mL) Date Value 03/03/2022 3.2 Thyroglobulin Ab (IU/mL) Date Value 03/03/2022 1.4 Thyroglobulin (ng/mL) Date Value 03/03/2022 5.8 06/12/2021 6.0 09/18/2020 6.5 Review of patient's past medical history indicates: Patient has had partial thyroidectomy on 02/26/2020. 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 Tumor diameter 2.0 cm Solitary Yes Multifocal No Side biggest Right Side next biggest N/A Encapsulated No Capsular invasion N/A Angioinvasion No Lymphovascular invasion Yes Extrathyroidal invasion No Margins involved No Background lymphocytic thyroiditis No Node status pNx Extranodal extension N/A Metastases No Complete excision Yes right thyroid lobectomy Antibody status unknown TNM/AJCC, 7th edition: pT2 pNx M0 Stage II TNM/AJCC, 8th edition: pT2 pNx M0 Stage I MACIS Scoring: Age: 4.0 Tumor: 0.6 Completeness: 0 Invasiveness: 0 Distant spread: 0 SCORE = 4.6 Survival by MACIS score (20-yr): <6 = 99% SHANIQUE risk low Ultrasound by Dr. Macdonald in August 2020: - No demonstrable disease No LAWRENCE was given. He is not taking thyroid hormone. He just had another neck ultrasound (February 2022). No abnormalities are detected. ROS: Energy is good. Sleeps well. Weight is stable. No difficulties swallowing or breathing. No pain or tenderness from thyroid bed. No heart palpitations. No temperature intolerance. No excessive sweating No constipation or diarrhea. No problems with skin, hair or nails. No muscle weaknes. Has cold toes and feels tiingling there. No muscle cramping. No tremors. Memory is good. No problems focusing. PE: Middle aged CC male. No acute distress, alert and orineted and in appropriate mood. HEENT: Emily, sclera anicteric, conjunctiva non inflamed, oral mucosa moist, no lesions. No lid lag. No stare. No exophtalmos. NECK: No visible masses. EXT: No edema or deformities. SKIN: no rash or lesions. No achantosis nigricans. NEURO: No focal signs. No tremors. Assessment and Plan: Patient has been followed by Dr. Patel and Renae. He had partial thyroidectomy for low risk thyroid Ca. Not on T4. Feels good but has cold toes that tingle. Will repeat TFT-s and see if starting T4 would make sense. US done in the office in February 2023 showed left lobe to be normal. Will stay in touch by My-chart. Bryce Mercado MD [facility] 02-24-2023 Procedure note ULTRASOUND EXAM OF THYROID RIGHT: Right thyroid lobe is removed surgically ISTHMUS: Normal. LEFT: Left thyroid lobe is of normal size and shape. Parenchyma is smooth. The is no nodule in this lobe. Impression: Normal findings after partial thyroidectomy. FNA: No FNA U/S by Staff:Bryce Mercado MD Date: February 24, 2023 documented in this encounter [facility] 02-24-2023 History of Presen t illness Narrative Christi Abbasi is a 53 year old male who is presenting today February 24, 2023 for a Thyroid problem. Parts of this note are copied from last visit and modified as needed. Social History Tobacco Use Smoking status: Never Smokeless tobacco: Never Vaping Use Vaping Use: Never used Substance Use Topics Alcohol use: Yes Drug use: No Reason for visit: Hypothyroidism and Thyroid Ca Previous laboratory results: TSH Date Value 03/03/2022 2.820 mIU/L 06/12/2021 3.350 uU/mL 09/18/2020 4.100 uU/mL Free T4 (ng/dL) Date Value 03/03/2022 1.1 06/12/2021 1.2 09/18/2020 1.1 Free T3 (pg/mL) Date Value 03/03/2022 3.2 Thyroglobulin Ab (IU/mL) Date Value 03/03/2022 1.4 Thyroglobulin (ng/mL) Date Value 03/03/2022 5.8 06/12/2021 6.0 09/18/2020 6.5 Review of patient's past medical history indicates: Patient has had partial thyroidectomy on 02/26/2020. 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 Tumor diameter 2.0 cm Solitary Yes Multifocal No Side biggest Right Side next biggest N/A Encapsulated No Capsular invasion N/A Angioinvasion No Lymphovascular invasion Yes Extrathyroidal invasion No Margins involved No Background lymphocytic thyroiditis No Node status pNx Extranodal extension N/A Metastases No Complete excision Yes right thyroid lobectomy Antibody status unknown TNM/AJCC, 7th edition: pT2 pNx M0 Stage II TNM/AJCC, 8th edition: pT2 pNx M0 Stage I MACIS Scoring: Age: 4.0 Tumor: 0.6 Completeness: 0 Invasiveness: 0 Distant spread: 0 SCORE = 4.6 Survival by MACIS score (20-yr): <6 = 99% SHANIQUE risk low Ultrasound by Dr. Macdonald in August 2020: - No demonstrable disease No LAWRENCE was given. He is not taking thyroid hormone. He just had another neck ultrasound (February 2022). No abnormalities are detected. ROS: Energy is good. Sleeps well. Weight is stable. No difficulties swallowing or breathing. No pain or tenderness from thyroid bed. No heart palpitations. No temperature intolerance. No excessive sweating No constipation or diarrhea. No problems with skin, hair or nails. No muscle weaknes. Has cold toes and feels tiingling there. No muscle cramping. No tremors. Memory is good. No problems focusing. PE: Middle aged CC male. No acute distress, alert and orineted and in appropriate mood. HEENT: Emily, sclera anicteric, conjunctiva non inflamed, oral mucosa moist, no lesions. No lid lag. No stare. No exophtalmos. NECK: No visible masses. EXT: No edema or deformities. SKIN: no rash or lesions. No achantosis nigricans. NEURO: No focal signs. No tremors. Assessment and Plan: Patient has been followed by Dr. Patel and Renae. He had partial thyroidectomy for low risk thyroid Ca. Not on T4. Feels good but has cold toes that tingle. Will repeat TFT-s and see if starting T4 would make sense. US done in the office in February 2023 showed left lobe to be normal. Will stay in touch by My-chart. Bryce Mercado MD documented in this encounter [facility] 02-24-2023 Instructions Nicholas Farrell MA - 02/24/2023 3:12 PM EDT Thank you for choosing the [facility] Department of Endocrinology, Diabetes and Metabolism. Did you know that you need to call 48 hours in advance of your scheduled visit, if you are unable to make your appointment? The Endocrinology and Metabolism [place] thanks you for your commitment, because patients not showing to their appointment results in a lost opportunity for patients to receive united hospital health care at the [facility]. To Cancel an appointment, please choose one of the following: - Call the Appointment Call Center at [phone] - From [facility], Go to Appointments - Cancel Appts If cancelling, consider your need to reschedule to prevent further delays in your care. To Schedule an appointment, please choose one of the following: - Call the Appointment Call Center at [phone] - From [facility], Go to Appointments - Request an Appt documented in this encounter [facility] 03-03-2022 History of Presen t illness Narrative VIRTUAL VISIT PROGRESS NOTE This is a virtual visit using [email or web address] video platform. It required patient-provider interaction for the medical decision making as documented below. Christi Abbasi is a 52 year old male seen for Postsurgical hypothyroidism and thyroid Ca. HISTORY REVIEWED (electronic chart updated): PAST MEDICAL HISTORY Diagnosis Date Cervical spine disease H/O partial thyroidectomy 02/2020 Right lobectomy Papillary thyroid carcinoma (HCC) PAST SURGICAL HISTORY Procedure Laterality Date ANTERIOR INTERBODY FUSION, CERVICAL [address] Taurus Morales RHINP PRIM LAT&ALAR CRTLGS&/ELVTN NASAL TI 2018 Rhinoplasty THYROIDECTOMY SUBTOTAL/PARTIAL 02/2020 right thyroid lobectomy and isthmusectomy for a 2 cm papillary thyroid cancer FAMILY HISTORY Problem Relation Age of Onset Heart Father HEART DISEASE Cancer Father 69 Metastatic - unknown Hypertension Father Thyroid Maternal Grandfather No cancer Social History Tobacco Use Smoking status: Never Smoker Smokeless tobacco: Never Used Vaping Use Vaping Use: Never used Substance Use Topics Alcohol use: Yes Drug use: No Current Outpatient Medications Medication Sig aspirin, enteric coated (ASPIRIN, ENTERIC COATED) 81 mg EC tablet Take 81 mg by mouth once daily. atorvastatin (LIPITOR) 20 mg tablet Take 20 mg by mouth once daily. No current facility-administered medications for this visit. ALLERGIES No Known Allergies Previous laboratory results: TSH (uU/mL) Date Value 06/12/2021 3.350 09/18/2020 4.100 Free T4 (ng/dL) Date Value 06/12/2021 1.2 09/18/2020 1.1 Thyroglobulin (ng/mL) Date Value 06/12/2021 6.0 09/18/2020 6.5 Review of patient's past medical history indicates: Patient has had partial thyroidectomy on 02/26/2020. 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 Tumor diameter 2.0 cm Solitary Yes Multifocal No Side biggest Right Side next biggest N/A Encapsulated No Capsular invasion N/A Angioinvasion No Lymphovascular invasion Yes Extrathyroidal invasion No Margins involved No Background lymphocytic thyroiditis No Node status pNx Extranodal extension N/A Metastases No Complete excision Yes right thyroid lobectomy Antibody status unknown TNM/AJCC, 7th edition: pT2 pNx M0 Stage II TNM/AJCC, 8th edition: pT2 pNx M0 Stage I MACIS Scoring: Age: 4.0 Tumor: 0.6 Completeness: 0 Invasiveness: 0 Distant spread: 0 SCORE = 4.6 Survival by MACIS score (20-yr): <6 = 99% SHANIQUE risk low Ultrasound by Dr. Macdonald in August 2020: - No demonstrable disease No LAWRENCE was given. He is not taking thyroid hormone. He just had another neck ultrasound (February 2022). No abnormalities are detected. ROS: Energy is good. Sleeps well. Weight is stable. No difficulties swallowing or breathing. No pain or tenderness from thyroid bed. No heart palpitations. No temperature intolerance. No excessive sweating No constipation or diarrhea. No problems with skin, hair or nails. No muscle weaknes. Has cold toes and feels tiingling there. No muscle cramping. No tremors. Memory is good. No problems focusing. PE: Middle aged CC male. No acute distress, alert and orineted and in appropriate mood. HEENT: Emily, sclera anicteric, conjunctiva non inflamed, oral mucosa moist, no lesions. No lid lag. No stare. No exophtalmos. NECK: No visible masses. EXT: No edema or deformities. SKIN: no rash or lesions. No achantosis nigricans. NEURO: No focal signs. No tremors. Assessment and Plan: Patient has been followed by Dr. Patel and Renae. He had partial thyroidectomy for low risk thyroid Ca. Not on T4. Feels good but has cold toes that tingle. Will do TFT-s and see if starting T4 would make sense. Will stay in touch by My-chart. MD Bryce Marquez MD Answers for HPI/ROS submitted by the patient on 03/02/2022 Fatigue: No Night Sweats: No Recent Unintentional Weight Change: No Skin Color Changes: No Post-Nasal Drip: No Thyroid Pain (lower neck): No Trouble Swallowing: No Vision Disturbance: No Chest Pain: No Leg Swelling: No Blood Clots?: No Leg Pain while walking?: No Difficulty Breathing?: No Heartburn: No Nausea: No Vomiting?: No Diarrhea: No Constipation: No Abdominal Pain: No Bone Pain?: No Muscle Aches: No Muscle Weakness: No Joint Pain or Stiffness: No Headaches: No Dizziness: No Numbness?: Yes Urgency to Urinate?: No Increased Urination?: No Slow or Small Urine Stream?: No Flushing?: No Hot Flashes?: No Increased Thirst: No Change in Body Hair?: No Cold Intolerance: No Heat Intolerance?: No documented in this encounter [facility] 03-02-2022 History of Presen t illness Narrative Endocrinology Metabolism [place] [facility] Percy Villaseñor MD [address] [place] [address] ENDOCRINE SURGERY FOLLOW UP NOTE NAME: Christi Abbasi [facility] NO: [id number] : 1970 Surgeon: Dr. Torrey Macdonald HPI: Christi Amanda Abbasi present for follow-up of his papillary thyroid cancer. Patient underwent a right thyroid lobectomy and isthmusectomy on February 2020. He was found to have a 2 cm papillary thyroid cancer on final pathology. He was seen by endocrinology Dr. Ortiz and we both did not feel that a completion thyroidectomy was necessary. He presents today for his 1 year followup He has no complaints and is not taking any thyroid hormone at this time. PHYSICAL EXAMINATION: On physical exam, Christi Abbasi is well appearing, alert, and oriented and appears euthyroid. On inspection, the skin over the anterior neck is smooth, no mass is visualized. Palpation revealed neck to be supple, a well healed cervical incision is noted. No lymphadenopathy was palpated on either side of the neck. ULTRASOUND: Ultrasound examination was performed in the office today. This demonstrated the surgical absence of the right thyroid lobe. The left thyroid lobe was of normal size and echogenicity. No nodules were noted in the left thyroid lobe. There was no suspicious lymphadenopathy noted in either the central or lateral neck compartments bilaterally. LABS: TSH Date Value Ref Range Status 06/12/2021 3.350 0.270 - 4.200 uU/mL Final IMPRESSION: No evidence of recurrent disease on exam today. PLAN: TG, TG ab, TSH today Follow up with Endocrinology in 1-2 months for TSH review. I spent a total of 20 minutes on the date of the service which included preparing to see the patient, [id number] patient care, completing clinical documentation, obtaining and/or reviewing separately obtained history, performing a medically appropriate examination, counseling and educating the patient/family/caregiver, ordering medications, tests, or procedures, independently interpreting results (not separately reported) and communicating results to the patient/family/caregiver. Percy Villaseñor MD documented in this encounter [facility] 02-25-2022 Instructions Eric Vasquez MA - 02/25/2022 11:26 AM EDT Thank you for choosing the [facility] Department of Endocrinology, Diabetes and Metabolism. Did you know that you need to call 48 hours in advance of your scheduled visit, if you are unable to make your appointment? The [facility] [place] thanks you for your commitment, because patients not showing to their appointment results in a lost opportunity for patients to receive world class health care at the [facility]. To Cancel an appointment, please choose one of the following: - Call the Appointment Call Center at [phone] - From [facility], Go to Appointments Cancel Appts If cancelling, consider your need to reschedule to prevent further delays in your care. 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/2020 020 documented as of this encounter (statuses as of 02/25/2023) [facility] Malignant neoplasm of thyroid gland (HCC)- Primary Malignant neoplasm of thyroid gland [facility] History of thyroid cancer- Primary Personal history of malignant neoplasm of thyroid H/O partial thyroidectomy Other postprocedural status [facility] Diagnosis H/O partial thyroidectomy- Primary Other postprocedural status History of thyroid cancer Personal history of malignant neoplasm of thyroid documented in this encounter [facility] Summary Purpose Family History No Family History Records FoundNo Family History Records FoundNo Family History Records Found Advance Directives No Advanced Directives Records FoundDocuments on File Type Date Recorded Patient Real Estate Intern Expl anation Advance Directive(s) 02/26/2020 8:20 AM Advance Directive(s) 02/20/2020 12:12 PM Advance Directive(s) 01/31/2020 2:37 PM Documents on File Type Date Recorded Patient Real Estate Intern Expl anation Advance Directive(s) 02/26/2020 8:20 AM Advance Directive(s) 02/20/2020 12:12 PM Advance Directive(s) 01/31/2020 2:37 PM Documents on File Type Date Recorded Patient Real Estate Intern Expl anation Advance Directive(s) 02/26/2020 8:20 AM Reason for Referral Specialty Diagnoses / Procedures Referred By Juan Alberto cruz Referred To Contact Endocrinology Diagnoses Malignant neoplasm of thyroid gland (HCC) Procedures CONSULT TO ENDOCRINOLOGY OFFICE/OUTPATIENT [facility] HIGH MDM 60-74 MINUTES Percy Villaseñor MD [address] [place] [address] Referral ID Status Reason Start Date Expiration Date Visits Requested Visits Authorized [id number] Authorized PCP Requested Referral 02/25/2022 02/25/2023 1 1 Additional Source Comments (unrecognized sect ion and content) No Status Records FoundNo Status Records FoundNo Status Records Found INFORMATION SOURCE (unrecogn ized section and content) DATE CREATED AUTHOR AUTHOR'S ORGANIZ ATION 12/04/2019 [facility] DATE CREATED AUTHOR AUTHOR'S ORGANIZ ATION 03/04/2023 [facility] Source Comments (unrecognize d section and content) In the event this informatio n is protected by the Federal Confidentiality of Alcohol and Drug Abuse Patient Records regulations: The Federal rules restrict any use of the information to criminally investigate or prosecute any alcohol or drug abuse patient.[facility] HospitalIn the event this information is protected by the Federal Confidentiality of Alcohol and Drug Abuse Patient Records regulations: The Federal rules restrict any use of the information to criminally investigate or prosecute any alcohol or drug abuse patient.[facility] the event this information is protected by the Federal Confidentiality of Alcohol and Drug Abuse Patient Records regulations: The Federal rules restrict any use of the information to criminally investigate or prosecute any alcohol or drug abuse patient.[facility] Reason for Visit (unrecogniz ed section and content) Reason Comments Thyroid Problem Thyroid Cancer Reason Comments Thyroid Cancer Care Teams (unrecognized sec tion and content) Manager Scientific Relationship Specialty Start Date End Date Aldair Wells MD [address] [place], [place] [address] PCP - General Family Practice 10/02/19 Manager Scientific Relationship Specialty Start Date End Date Aldair Wells MD [address] [place], [place] [id number] PCP - General Family Medicine 10/02/19 FOR RECORDS PERTAINING TO PATIENTS WHO ARE OR HAVE BEEN ENROLLED IN A CHEMICAL DEPENDENCY/SUBSTANCEABUSE PROGRAM, SOME INFORMATION MAY BE OMITTED. This clinical summary was aggregated from multiple sources. Caution should be exercised in using it in the provision of clinical care. This summary normalizes information from multiple sources, and as a consequence, information in this document may materially change the coding, format and clinical context of patient data. In addition, data may be omitted in some cases. CLINICAL DECISIONS SHOULD BE BASED ON THE PRIMARY CLINICAL RECORDS. [employer] provides no warranty or guarantee of the accuracy or completeness of information in this document.
[2023-12-24 16:06] VITALS: BP 138/97; PULSE 72; RESP 16; O2SAT 99
== END 2023-12-24 16:07 | disposition home or self-care (01) ==
PROVIDERS: Emergency Provider Emergency Medicine; PCP Nurse Practitioner Family; Visit Provider Emergency Medicine
DX: H49.02 Third [oculomotor] nerve palsy, left eye (principal)
CPT/HCPCS: 70450; 70496; 70498; 70551; 80048; 84484; 85025; 85610; 85652; 85730; 86140; 93005; 99284; Q9967

== ENCOUNTER → 2023-12-29 | Outpatient (CLI) | payer BC, SELFPAY ==
--- OUTSIDE RECORDS SUMMARY | 2023-12-29 11:43 | XMS RPT_ITS | CCD ---
Author Name Unknown Address [address] [place] [address] Organization [facility] Care Team Providers Care Promotional Model Name Role Phone Aldair Wells MD Primary Care Provider BRYCE MERCADO Referring Unavailable ALDAIR WELLS Primary [...] 203.2 cm Bryce Mercado MD Work Phone: [facility] 02-24-2023 15:17-0400 Body weight 128.37 kg Bryce Mercado MD Work Phone: [facility] 02-24-2023 15:17-0400 Diastolic blood pressure 77 mm[Hg] Bryce Mercado MD Work Phone: [facility] 02-24-2023 15:17-0400 Heart rate 79 /min Bryce Mercado MD Work Phone: [facility] 02-24-2023 15:17-0400 Systolic blood pressure 125 mm[Hg] Bryce Mercado MD Work Phone: [facility] 02-25-2022 11:29-0400 Body weight 128.82 kg Percy Villaseñor MD Work Phone: [facility] 02-25-2022 11:29-0400 Diastolic blood pressure 82 mm[Hg] Percy Villaseñor MD Work Phone: [facility] 02-25-2022 11:29-0400 Heart rate 76 /min Percy Villaseñor MD Work Phone: [facility] 02-25-2022 11:29-0400 Systolic blood pressure 128 mm[Hg] Percy Villaseñor MD Work Phone: [facility] Encounters Encounter Date Encounter Type Care Provider Facility Start: 02-24-2023 End: 02-25-2023 ambulatory BRYCE MERCADO Facility:[facility] Start: 02-24-2023 End: 02-24-2023 Patient encounter procedure Bryce Mercado MD Work Phone: Endocrinology Procedures Date Procedure Procedure Detail Performing Clinician Start: 09-04-2019 Adult depression screening assessment Percy Villaseñor MD Work Phone: Plan of Treatment Date Care Activity Detail Author Start: 07-23-2023 Influenza vaccination INFLUENZA (Season Ended) [facility] Start: 02-19-2023 DIABETES SCREEN DIABETES SCREEN [facility] Start: 11-22-2022 DEPRESSION ASSESSMENT DEPRESSION ASSESSMENT [facility] Start: 03-03-2022 End: 05-03-2022 T3 FREE BLD T3 FREE BLD Lab Routine History of thyroid cancer H/O partial thyroidectomy Expected: 03/03/2022, Expires: 05/03/2022 [facility] Work Phone: Immunizations Immunization Date Immunization Notes Care Provider Georges carias 10-16-2019 Influenza, injectabl e, Madin Chrissy Canine Kidney, quadrivalent with preservative Percy Villaseñor MD Work Phone: [facility] Payers Date Payer Category Payer Unknown [employer] PPO OOS [id number] 2013-Present [phone] [address] [place] [address] PPO [id number] 2013 Unknown [employer] PPO OOS [id number] 2013-Present [phone] [address] [place] [address] PPO [id number] 2013 Unknown [id number] Social History Date Type Detail Facility Start: 08-28-2020 End: 02-24-2023 Tobacco smoking status NHIS Never smoked tobacco [facility] Work Phone: Start: 08-28-2020 End: 02-24-2023 Tobacco use and exposure Smokeless tobacco non-user [facility] Work Phone: Start: 02-25-2022 End: 02-24-2023 Alcohol intake Current drinker of alcohol (finding) [facility] Start: 08-28-2020 History SDOH Alcohol Frequency 2 [facility] Start: 08-28-2020 History SDOH Alcohol Binge 3 [facility] Start: 1970 Sex Assigned At Not on file [facility] Start: 02-15-2022 End: 02-25-2022 Exposure to SARS-CoV-2 (event) Not sure [facility] Clinical Notes 01-18-2020 to 02-24-2023 Bryce Mercado MD - 02/24/2023 3:55 PM Arely Mercado MD - 02/24/2023 3:43 PM EDTPatient Bhavin Mercado MD - 03/03/2022 7:50 AM EDLucie Villaseñor MD - 03/02/2022 1:48 PM EDT Note Date & Type Note Facility 02-24-2023 Note HNO ID: [id number] Author: Bryce Mercado MD Service: ? Author [...] Staff:Bryce Mercado MD Date: February 24, 2023 [facility] 02-24-2023 Note HNO ID: [id number] Author: Bryce Mercado MD Service: ? Author [...] in touch by My-chart. Bryce Mercado MD [facility] 02-24-2023 Procedure note ULTRASOUND EXAM OF THYROID RIGHT: Right thyroid lobe is removed surgically ISTHMUS: Normal. LEFT: Left thyroid lobe is of normal size and shape. Parenchyma is smooth. The is no nodule in this lobe. Impression: Normal findings after partial thyroidectomy. FNA: No FNA U/S by Staff:Bryce Mercado MD Date: February 24, 2023 documented in this encounter [facility] 02-24-2023 History of Presen t illness [...] Bryce Mercado MD documented in this encounter [facility] 02-24-2023 Instructions Nicholas Farrell MA - 02/24/2023 3:12 PM EDT Thank you for choosing the [facility] Department of Endocrinology, Diabetes and Metabolism. Did you know that you need to call 48 hours in advance of your scheduled visit, if you are unable to make your appointment? [facility] [place] thanks you for your commitment, because patients not showing to their appointment results in a lost opportunity for patients to receive [facility] health care at the [facility]. To Cancel an appointment, please choose one of the following: - Call the Appointment Call Center at [phone] - From [facility], Go to Appointments - Cancel Appts If cancelling, consider your need to reschedule to prevent further delays in your care. To Schedule an appointment, please choose one of the following: - Call the Appointment Call Center at [phone] - From [facility], Go to Appointments - Request an Appt documented in this encounter [facility] 03-03-2022 History of Presen t illness Narrative VIRTUAL VISIT PROGRESS NOTE This is a virtual visit using [employer] video platform. It required patient-provider interaction for [...] Heat Intolerance?: No documented in this encounter [facility] 03-02-2022 History of Presen t illness Narrative Endocrinology Metabolism [place] [facility] Percy Villaseñor MD [address] [place] [address] ENDOCRINE SURGERY FOLLOW UP NOTE NAME: Christi Abbasi [facility] NO: [id number] : 1970 Surgeon: Dr. Torrey Macdonald HPI: [...] which included preparing to see the patient, [id number] patient care, completing clinical documentation, obtaining and/or reviewing separately obtained history, performing a medically appropriate examination, counseling and educating the patient/family/caregiver, ordering medications, tests, or procedures, independently interpreting results (not separately reported) and communicating results to the patient/family/caregiver. Percy Villaseñor MD documented in this encounter [facility] 02-25-2022 Instructions Eric Vasquez MA - 02/25/2022 11:26 AM EDT Thank you for choosing the [facility] Department of Endocrinology, Diabetes and Metabolism. Did you know that you need to call 48 hours in advance of your scheduled visit, if you are unable to make your appointment? [facility] [place] thanks you for your commitment, because patients not showing to their appointment results in a lost opportunity for patients to receive world class health care at the [facility]. To Cancel an appointment, please choose one of the following: - Call the Appointment Call Center at [phone] - From [facility], Go to Appointments Cancel Appts If cancelling, consider your need to reschedule to prevent further delays in your care. To Schedule an appointment, please choose one of the following: - Call the Appointment Call Center at [phone] - From [facility], Go to Appointments Request an Appt documented in this encounter [facility] documented as of this encounter (statuses as of 03/02/2022) [facility] History of Past illness Narrative* Problem Noted Date Resolved Date Non-toxic nodular goiter 01/18/2020 020 documented as of this encounter (statuses as of 03/03/2022) [facility] History of Past illness Narrative* Problem Noted Date Resolved Date Non-toxic nodular goiter 01/18/2020 020 documented as of this encounter (statuses as of 02/25/2023) [facility] Diagnosis Malignant neoplasm of thyroid gland (HCC)- Primary Malignant neoplasm of thyroid gland [facility] Diagnosis History of thyroid cancer- Primary Personal history of malignant neoplasm of thyroid H/O partial thyroidectomy Other postprocedural status [facility] Diagnosis H/O partial thyroidectomy- Primary Other postprocedural status History of thyroid cancer Personal history of malignant neoplasm of thyroid documented in this encounter [facility] Summary Purpose Family History No Family History Records FoundNo Family History Records FoundNo Family History Records Found Advance Directives No Advanced Directives Records FoundDocuments on File Type Date Recorded 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 Expl 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 Advance Directive(s) 02/26/2020 8:20 AM Advance Directive(s) 02/20/2020 12:12 PM Advance Directive(s) 01/31/2020 2:37 PM Documents on File Type Date Recorded 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 Process Expl anation Advance Directive(s) 02/26/2020 8:20 AM Advance Directive(s) 02/20/2020 12:12 PM Advance Directive(s) 01/31/2020 2:37 PM Documents on File Type Date Recorded 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 Process Expl anation Advance Directive(s) 02/26/2020 8:20 AM Reason for Referral Specialty Diagnoses / Procedures Referred By Juan Alberto cruz Referred To Contact Endocrinology Diagnoses Malignant neoplasm of thyroid gland (HCC) Procedures CONSULT TO ENDOCRINOLOGY OFFICE/OUTPATIENT [facility] 60-74 MINUTES Percy Villaseñor MD [address] [place] [address] Referral ID Status Reason Start Date Expiration Date Visits Requested Visits Authorized [id number] Authorized PCP Requested Referral 02/25/2022 02/25/2023 1 1 Additional Source Comments (unrecognized sect ion and content) No Status Records FoundNo Status Records FoundNo Status Records Found INFORMATION SOURCE (unrecogn ized section and content) DATE CREATED AUTHOR AUTHOR'S ORGANIZ ATION 12/04/2019 [facility] DATE CREATED AUTHOR AUTHOR'S ORGANIZ ATION 03/04/2023 [facility] Source Comments (unrecognize d section and content) In the event this informatio n is protected by the Federal Confidentiality of Alcohol and Drug Abuse Patient Records regulations: The Federal rules restrict any use of the information to criminally investigate or prosecute any alcohol or drug abuse patient.[facility] the event this information is protected by the Federal Confidentiality of Alcohol and Drug Abuse Patient Records regulations: The Federal rules restrict any use of the information to criminally investigate or prosecute any alcohol or drug abuse patient.[facility] the event this information is protected by the Federal Confidentiality of Alcohol and Drug Abuse Patient Records regulations: The Federal rules restrict any use of the information to criminally investigate or prosecute any alcohol or drug abuse patient.[facility] Reason for Visit (unrecogniz ed section and content) Reason Comments Thyroid Problem Thyroid Cancer Reason Comments Thyroid Cancer Care Teams (unrecognized sec tion and content) Promotional Model Relationship Specialty Start Date End Date Aldair Wells MD [address] [place], [place] [id number] PCP - General Family Practice 10/02/19 Promotional Model Relationship Specialty Start Date End Date Aldair Wells MD [address] [place], [place] [id number] PCP - General Family Medicine 10/02/19 FOR [...] BE BASED ON THE PRIMARY CLINICAL RECORDS. [employer] provides no warranty or guarantee of the accuracy or completeness of information in this document.
== END | disposition home or self-care (01) ==
PROVIDERS: PCP Nurse Practitioner Family; Referring Provider Ophthalmology; Visit Provider Ophthalmology
DX: H49.02 Third [oculomotor] nerve palsy, left eye (principal)
CPT/HCPCS: 36415

== ENCOUNTER → 2024-02-04 | Outpatient (CLI) | payer BC, SELFPAY ==
--- OUTSIDE RECORDS SUMMARY | 2024-02-04 10:40 | XMS RPT_ITS | CCD ---
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 02-24-2023 15:17-0400 Body weight 128.37 kg Bryce Mercado MD Work Phone: [facility] 02-24-2023 15:17-0400 Diastolic blood pressure 77 mm[Hg] Bryce Mercado MD Work Phone: [facility] 02-24-2023 15:17-0400 Heart rate 79 /min Bryce Mercado MD Work Phone: [facility] 02-24-2023 15:17-0400 Systolic blood pressure 125 mm[Hg] Bryce Mercado MD Work Phone: [facility] 02-25-2022 11:29-0400 Body weight 128.82 kg Percy Villaseñor MD Work Phone: [facility] 02-25-2022 11:29-0400 Diastolic blood pressure 82 mm[Hg] Percy Villaseñor MD Work Phone: [facility] 02-25-2022 11:29-0400 Heart rate 76 /min Percy Villaseñor MD Work Phone: [facility] 02-25-2022 11:29-0400 Systolic blood pressure 128 mm[Hg] Percy Villaesñor MD Work Phone: [facility] Encounters Encounter Date Encounter Type Care Provider Facility Start: 02-24-2023 End: 02-25-2023 ambulatory BRYCE MERCADO Facility:[facility] Start: 02-24-2023 End: 02-24-2023 Patient encounter procedure Bryce Mercado MD Work Phone: Endocrinology Procedures Date Procedure Procedure Detail Performing Clinician Start: 09-04-2019 Adult depression screening assessment Percy Villaseñor MD Work Phone: Plan of Treatment Date Care Activity Detail Author Start: 07-23-2023 Influenza vaccination INFLUENZA (Season Ended) [facility] Start: 02-19-2023 DIABETES SCREEN DIABETES SCREEN [facility] Start: 11-22-2022 DEPRESSION ASSESSMENT DEPRESSION ASSESSMENT [facility] Start: 03-03-2022 End: 05-03-2022 T3 FREE BLD T3 FREE BLD Lab Routine History of thyroid cancer H/O partial thyroidectomy Expected: 03/03/2022, Expires: 05/03/[address] [facility] Work Phone: Immunizations Immunization Date Immunization Notes Care Provider Fa aretha 10-16-2019 Influenza, injectabl e, Madin Chrissy Canine Kidney, quadrivalent with preservative Percy Villaseñor MD Work Phone: [facility] Payers Date Payer Category Payer Unknown [employer] PPO OOS [id number] 2013-Present [phone] [address] [place] [address] PPO [id number] 2013 Unknown [employer] PPO OOS [id number] 2013-Present [phone] [address] [place] [address] PPO [id number] 2013 Unknown [id number] Social History Date Type Detail Facility Start: 08-28-2020 End: 02-24-2023 Tobacco smoking status NHIS Never smoked tobacco [facility] Work Phone: Start: 08-28-2020 End: 02-24-2023 Tobacco use and exposure Smokeless tobacco non-user [facility] Work Phone: Start: 02-25-2022 End: 02-24-2023 Alcohol intake Current drinker of alcohol (finding) [facility] Start: 08-28-2020 History SDOH Alcohol Frequency [address] [facility] Start: 08-28-2020 History SDOH Alcohol Binge [address] [facility] Start: 1970 Sex Assigned At Not on file [facility] Start: 02-15-2022 End: 02-25-2022 Exposure to SARS-CoV-2 (event) Not sure [facility] Clinical Notes 01-18-2020 to 02-24-2023 Bryce Mercado MD - 02/24/2023 3:55 PM Arely Mercado MD - 02/24/2023 3:43 PM EDTPatient Bhavin Mercado MD - 03/03/2022 7:50 AM EDLucie Villaseñor MD - 03/02/2022 1:48 PM EDT Note Date & Type Note Facility 02-24-2023 Note HNO ID: [id number] Author: Bryce Mercado MD Service: ? Author [...] Staff:Bryce Mercado MD Date: February 24, 2023 [facility] 02-24-2023 Note HNO ID: [id number] Author: Bryce Mercado MD Service: ? Author [...] in touch by My-chart. Bryce Mercado MD [facility] 02-24-2023 Procedure note ULTRASOUND EXAM OF THYROID RIGHT: Right thyroid lobe is removed surgically ISTHMUS: Normal. LEFT: Left thyroid lobe is of normal size and shape. Parenchyma is smooth. The is no nodule in this lobe. Impression: Normal findings after partial thyroidectomy. FNA: No FNA U/S by Staff:Bryce Mercado MD Date: February 24, 2023 documented in this encounter [facility] 02-24-2023 History of Presen t illness Narrative [...] MD documented in this encounter [facility] 02-24-2023 Instructions Nicholas Farrell MA - 02/24/2023 3:12 PM EDT Thank you for choosing the [facility] Department of Endocrinology, Diabetes and Metabolism. Did you know that you need to call 48 hours in advance of your scheduled visit, if you are unable to make your appointment? [facility] [place] thanks you for your commitment, because patients not showing to their appointment results in a lost opportunity for patients to receive [facility] at the [facility]. To Cancel an appointment, please choose one of the following: - Call the Appointment Call Center at [phone] - From [employer], Go to Appointments - Cancel Appts If cancelling, consider your need to reschedule to prevent further delays in your care. To Schedule an appointment, please choose one of the following: - Call the Appointment Call Center at [phone] - From [employer], Go to Appointments - Request an Appt documented in this encounter [facility] 03-03-2022 History of Presen t illness Narrative VIRTUAL VISIT PROGRESS NOTE This is a virtual visit using [employer] video platform. It required patient-provider interaction for [...] No documented in this encounter [facility] 03-02-2022 History of Presen t illness Narrative Endocr[facility]ology [facility] [place] [facility] Percy Villaseñor MD [address] [place] [address] ENDOCRINE SURGERY FOLLOW UP NOTE NAME: Christi Abbasi [facility] NO: [id number] : 1970 Surgeon: Dr. Torrey Macdonald HPI: [...] which included preparing to see the patient, [id number] patient care, completing clinical documentation, obtaining and/or reviewing separately obtained history, performing a medically appropriate examination, counseling and educating the patient/family/caregiver, ordering medications, tests, or procedures, independently interpreting results (not separately reported) and communicating results to the patient/family/caregiver. Percy Villaseñor MD documented in this encounter [facility] 02-25-2022 Instructions Eric Vasquez MA - 02/25/2022 11:26 AM EDT Thank you for choosing the [facility] Department of Endocrinology, Diabetes and Metabolism. Did you know that you need to call 48 hours in advance of your scheduled visit, if you are unable to make your appointment? [facility] [place] thanks you for your commitment, because patients not showing to their appointment results in a lost opportunity for patients to receive world class health care at the [facility]. To Cancel an appointment, please choose one of the following: - Call the Appointment Call Center at [phone] - From [employer], Go to Appointments Cancel Appts If cancelling, consider your need to reschedule to prevent further delays in your care. To Schedule an appointment, please choose one of the following: - Call the Appointment Call Center at [phone] - From [facility], Go to Appointments Request an Appt documented in this encounter [facility] documented as of this encounter (statuses as of 03/02/2022) 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 Diagnosis Malignant neoplasm of thyroid gland (HCC)- Primary Malignant neoplasm of thyroid gland [facility] Diagnosis History of thyroid cancer- Primary Personal history of malignant neoplasm of thyroid H/O partial thyroidectomy Other postprocedural status [facility] Diagnosis H/O partial thyroidectomy- Primary Other postprocedural status History of thyroid cancer Personal history of malignant neoplasm of thyroid documented in this encounter 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 Advance Directive(s) 02/26/2020 8:20 AM Advance Directive(s) 02/20/2020 12:12 PM Advance Directive(s) 01/31/2020 2:37 PM Documents on File Type Date Recorded Patient Corporate Training Manager Expl anation Advance Directive(s) 02/26/2020 8:20 AM Advance Directive(s) 02/20/2020 12:12 PM Advance Directive(s) 01/31/2020 2:37 PM Documents on File Type Date Recorded Patient Corporate Training Manager Expl anation Advance Directive(s) 02/26/2020 8:20 AM Reason for Referral Specialty Diagnoses / Procedures Referred By Juan Alberto cruz Referred To Contact Endocrinology Diagnoses Malignant neoplasm of thyroid gland (HCC) Procedures CONSULT TO ENDOCRINOLOGY OFFICE/OUTPATIENT [facility] MDM 60-74 MINUTES Percy Villaseñor MD [address] [place] [address] Referral ID Status Reason Start Date Expiration Date Visits Requested Visits Authorized [id number] Authorized PCP Requested Referral 02/25/2022 02/25/2023 1 1 Additional Source Comments (unrecognized sect ion and content) No Status Records FoundNo Status Records FoundNo Status Records Found INFORMATION SOURCE (unrecogn ized section and content) DATE CREATED AUTHOR AUTHOR'S ORGANIZ ATION 12/04/2019 [facility] DATE CREATED AUTHOR AUTHOR'S ORGANIZ ATION 03/04/2023 [facility] Source Comments (unrecognize d section and content) In the event this informatio n is protected by the Federal Confidentiality of Alcohol and Drug Abuse Patient Records regulations: The Federal rules restrict any use of the information to criminally investigate or prosecute any alcohol or drug abuse patient.[facility] the event this information is protected by the Federal Confidentiality of Alcohol and Drug Abuse Patient Records regulations: The Federal rules restrict any use of the information to criminally investigate or prosecute any alcohol or drug abuse patient.[facility] the event this information is protected by the Federal Confidentiality of Alcohol and Drug Abuse Patient Records regulations: The Federal rules restrict any use of the information to criminally investigate or prosecute any alcohol or drug abuse patient.[facility] Reason for Visit (unrecogniz ed section and content) Reason Comments Thyroid Problem Thyroid Cancer Reason Comments Thyroid Cancer Care Teams (unrecognized sec tion and content) Mining Machinery Assembler Relationship Specialty Start Date End Date Aldair Wells MD [address] [place], [place] [address] PCP - General Family Practice 10/02/19 Mining Machinery Assembler Relationship Specialty Start Date End Date Aldair Wells MD [address] [place], [place] [id number] PCP - General Family Medicine 10/02/19 FOR [...] BE BASED ON THE PRIMARY CLINICAL RECORDS. [employer]. provides no warranty or guarantee of the accuracy or completeness of information in this document.
== END | disposition home or self-care (01) ==
LOC: LAB 09:55
PROVIDERS: PCP Nurse Practitioner Family; Referring Provider Ophthalmology; Visit Provider Ophthalmology
DX: H53.2 Diplopia (principal)
CPT/HCPCS: 36415

== ENCOUNTER 2024-04-02 15:52 | Emergency (ER) | payer BC, SELFPAY ==
[2024-04-02 15:53] VITALS: BP 119/81; PULSE 88; RESP 18; TEMP 35.9; O2SAT 97; BMI 31.1
--- NOTE | 2024-04-02 17:32 | EDS_ITS ---
HPI <DION Thomas - Last Filed: 04/02/24 21:16> History of Present Illness Chief Complaint: Ear Problem Narrative Narrative: Patient presenting with concerns for a tick in his right ear. He reports that he had a pain in his ear and asked his to take a look with her otoscope, she noticed a black dot inside of his ear canal with surrounding erythema and thought that it could be a tick. She then poured alcohol in his ear and he had the sensation that something was crawling around in his ear canal, prompting him to come in for evaluation. He denies any decreased hearing or tinnitus. PFSH <DION Thomas - Last Filed: 04/02/24 21:16> PFSH Medical History Arthritis History of back problems Nasal bone fracture Right thyroid nodule Thyroid nodule Home Medications atorvastatin 20 mg tablet 20 mg PO QHS #30 tabs 04/29/21 [Rx Last Taken Unknown] Allergy/AdvReac Type Severity Reaction Status Date / Time No Known Allergies Allergy Verified 04/02/24 15:52 Family History Father Arthritis Cancer Heart disease Hypertension Mother Arthritis Surgical History History of fusion of cervical spine historyclosed reduction nasal fracture S/P thyroid surgery Social History Smoking Status: Never smoker alcohol intake: current details: occasional substance use type: does not use ROS <DION Thomas - Last Filed: 04/02/24 21:16> ROS ED Constitutional Constitutional ED: Denies chills or fever(s) ENT ENT ED: Reports other Details: Foreign body sensation right ear Cardiovascular Cardiovascular: Denies chest pain Respiratory/Chest Respiratory/Chest: Denies dyspnea Integumentary Denies rash Neurologic Neurologic: Denies headache(s) EXAM <DION Thomas - Last Filed: 04/02/24 21:16> Physical Exam Const Vital Signs: 04/02/24 15:53 04/02/24 18:42 Temperature 96.7 F L 98.5 F Temperature Source Temporal Pulse Rate 88 68 Respiratory Rate 18 19 H Blood Pressure 119/81 H 128/76 H Blood Pressure Mean 93 93 Pulse Ox 97 98 Oxygen Delivery Method Room Air Positive well nourished, well developed and no apparent distress General Appearance ED: well developed HEENT Reports normocephalic and head/scalp atraumatic HEENT Narrative: Left TM clear, left EAC clear. Right TM clear without any erythema or bulging. Right EAC has a small area of erythema to the 3 o'clock position in the canal with a small black dot in the center. There does not appear to be a tick. Mouth ED: Yes moist mucous membranes normal Eyes PERRL and EOMs intact bilaterally Neck full ROM and supple Chest Wall inspection of chest normal Resp normal respiratory effort and clear to auscultation bilaterally Cardio regular rate and regular rhythm GI soft to palpation, non-tender, non-distended and no masses Back/Spine normal ROM and normal to inspection Extremity normal to inspection and full ROM Neuro oriented x3, CN's II-XII intact bilaterally, moves all extremities, no focal motor deficits and no sensory deficits noted Sensorium / Orientation: awake and alert Psych mental status grossly normal and thought process normal Skin no rashes or lesions noted and no wounds <Dr. Alexis Mo DO - Last Filed: 04/02/24 22:09> Physical Exam Const Vital Signs: 04/02/24 15:53 04/02/24 18:42 Temperature 96.7 F L 98.5 F Temperature Source Temporal Pulse Rate 88 68 Respiratory Rate 18 19 H Blood Pressure 119/81 H 128/76 H Blood Pressure Mean 93 93 Pulse Ox 97 98 Oxygen Delivery Method Room Air [facility] <DION Thomas - Last Filed: 04/02/24 21:16> [facility] Narrative Medical decision making narrative: Patient presenting with concerns that he has a tick in his right ear. His looked with an otoscope and thought she saw what looked like a tick with surrou nding erythema. She then poured alcohol in the ear and he could feel what felt like a bug moving around, prompting him to come in for evaluation. He does not know how long it could have been in there. I do not see a tick in his ear, I do see an area of small circular area of erythema at the 3 o'clock position with a black dot in the center. The attending did flush saline through the ear, no fo reign body was expelled. He will be placed on a dose of doxycycline to prevent Lyme's disease. He does not have any hearing loss or tinnitus. No otitis media or externa. He is to follow-up with his PCP and will be discharged home in stable condition. <Dr. Alexis Mo, DO - Last Filed: 04/02/24 22:09> [facility] Narrative Medical decision making narrative: Patient presenting with concerns that he has a tick in his right ear. His looked with an otoscope and thought she saw what looked like a tick with surrounding erythema. She then poured alcohol in the ear and he could feel what felt like a bug moving around, prompting him to come in for evaluation. He does not know how long it could have been in there. I do not see a tick in his ear, I do see an area of small circular area of erythema at the 3 o'clock position with a black dot in the center. The attending did flush saline through the ear, no foreign body was expelled. He will be placed on a dose of doxycycline to prevent Lyme's disease. He does not have any hearing loss or tinnitus. No otitis media or externa. He is to follow-up with his PCP and will be discharged home in stable condition. ED attending note: I evaluated the patient in conjunction with the SAM. I agree with his/her stat ements and above findings. I have personally performed a face to face assessment of the patient and have reviewed the SAM Note. I performed a substantive portion of the visit including all aspects of the following. I personally saw the patient performed chart review, physical exam, reviewed labs, imaging (if obtained), and formulated a treatment and management plan. This note was generated with [employer] dictation software. It may contain incorrect words, spelling, and punctuation that were not noted in review of the chart prior to signing. Discharge Plan Triage Chief Complaint: Ear Problem ED Midlevel Provider: Myra Millan ED Provider: Alexis Mo Dx/Rx/DC Orders Clinical Impression: Ear foreign body, Tick bite, Lesion of ear canal Instructions: ED Tick Bite, Antibiotic Treatment Prescriptions: No Action atorvastatin 20 mg tablet 20 mg PO QHS Qty: 30 0RF Primary Care Provider: Jennifer Lunsford Referrals: Jennifer Lunsford, AUTOMOTIVE LEASING SALES REPRESENTATIVE-C [Primary Care Provider] - 5-7 Days Activity Restrictions/Additional Instructions: Follow-up with PCP and return for any worsening of your symptoms. Disposition Disposition: Home, Self Care Discharge Date/Time: 04/02/24 18:43
[2024-04-02] MEDS: Doxycycline 100 MG CAPSULE 200 MG PO (18:32)
[2024-04-02 18:42] VITALS: BP 128/76; PULSE 68; RESP 19; TEMP 36.9; O2SAT 98
== END 2024-04-02 18:43 | disposition home or self-care (01) ==
PROVIDERS: Emergency Provider Emergency Medicine; PCP Nurse Practitioner Family; Visit Provider Emergency Medicine
DX: T16.1XXA Foreign body in right ear, initial encounter (principal); W44.8XXA Other foreign body entering into or through a natural orifice, initial encounter; S00.471A Other superficial bite of right ear, initial encounter
CPT/HCPCS: 99282

== ENCOUNTER → 2024-11-27 | Outpatient (CLI) | payer BC, SELFPAY ==
[2024-11-27 12:03] LABS: Absolute Lymphocyte Count 1.18 X10^3/uL (0.83-4.51); Basophil# 0.03 X10^3/uL; Basophil% 0.6 % (0-1); Eosinophil# 0.17 X10^3/uL; Eosinophils% 3.5 % (0-5); Hematocrit 43.7 % (40-54); Hemoglobin 14.5 g/dL (13.0-16.5); Lymphocyte # 1.18 X10^3/ul (0.83-4.51); Lymphocyte % 24.1 % (19-41); Mean Corp Hgb Conc 33.2 g/dL (32-36); Mean Corpuscular Hgb 29.2 pg (27.0-32.0); Mean Corpuscular Volume 87.9 fL (80-94); Mean Platelet Vol. 10.2 fl (6.2-12.0); Monocyte# 0.48 X10^3/uL; Monocyte% 9.8 % (0-10); NRBC Flagged by Analyzer 0 % (0-5); Neutrophil # 3.02 X10^3/uL (2.7-7.7); Neutrophil % 61.8 % (47-70); Platelet Count 193 K/mm3 (150-450); RBC Distribution Width CV 13.3 % (11.6-14.6); RBC Distribution Width SD 42.4 fl (35.1-43.9); Red Blood Count 4.97 M/mm3 (4.6-6.2); White Blood Count 4.9 K/mm3 (4.4-11.0)
[2024-11-27 12:23] LABS: ALB/GLOB Ratio 1.2 RATIO (0.9-2.4); AST(SGOT) 20 U/L (15-37); Alanine Aminotransfer ALT/SGPT 33 U/L (16-61); Albumin, Serum 3.8 g/dL (3.2-5.0); Alkaline Phosphatase 82 U/L (45-117); Anion Gap 2 (5-15); BUN 14 mg/dL (7-18); BUN/Creat Ratio 13.9 RATIO (10-20); Calcium,Total 8.7 mg/dL (8.5-10.1); Chloride 108 mmol/L (98-107); Cholesterol 135 mg/dL (200); Creatinine, Serum 1.01 mg/dL (0.70-1.30); EST Glomerular Filtration Rate 81 mL/min (>60); Est Glom Filt Rate - Afr Amer 98 mL/min (>60); Globulin 3.3 g/dL (2.2-4.2); Glucose 107 mg/dL (74-106); High Density Lipoprotein 31 mg/dL; PSA,Total - Annual Screen 0.43 ng/mL (0.00-4.00); Potassium 4.5 mmol/L (3.5-5.1); Protein, Total 7.1 g/dL (6.4-8.2); Sodium Level 140 mmol/L (136-145); Triglycerides 207 mg/dL; Very Low Density Lipoprotein 41 mg/dL (5-40)
[2024-11-27 12:25] LABS: Vitamin D,25 Hydroxy 44.8 ng/mL
== END | disposition home or self-care (01) ==
LOC: BFHLAB 10:26
PROVIDERS: PCP Nurse Practitioner Family; Referring Provider Nurse Practitioner Family; Visit Provider Nurse Practitioner Family
DX: Z00.01 Encounter for general adult medical examination with abnormal findings (principal); Z12.5 Encounter for screening for malignant neoplasm of prostate; E55.9 Vitamin D deficiency, unspecified
CPT/HCPCS: 80053; 80061; 82306; 84153; 85025; G0103